=== PATIENT | female | born 1940 | race Caucasian/White ===

== ENCOUNTER 2021-09-28 10:39 | Inpatient (IN) ==
[2021-09-28 11:54] LABS: Basophils # (auto) 0.01 K/uL (0-0.2); Basophils % (auto) 0.3 %; Eosinophils # (auto) 0.01 K/uL (0-0.5); Eosinophils % (auto) 0.3 %; Hematocrit (blood only) 33.3 % (37-47); Hemoglobin 10.5 g/dL (12.0-16.0); Immature Granulocytes # (auto) 0.01 K/uL (0.00-0.02); Immature Granulocytes % (auto) 0.3 %; Lymphocytes # (auto) 0.36 K/uL (1.2-3.4); Lymphocytes % (auto) 10.1 %; Mean Corpuscular Hemoglobin 31.8 pg (25-34); Mean Corpuscular Hgb Conc 31.5 g/dL (32-36); Mean Corpuscular Volume 100.9 fL (80-100); Mean Platelet Volume 11.4 fL (7.4-10.4); Monocytes # (auto) 0.11 K/uL (0.11-0.59); Monocytes % (auto) 3.1 %; Neutrophils # (auto) 3.06 K/uL (1.4-6.5); Neutrophils % (auto) 85.9 %; Platelet Count 127 K/uL (130-400); RDW Coefficient of Variation 16.7 % (11.5-14.5); RDW Standard Deviation 62.2 fL (36.4-46.3); White Blood Count 3.56 K/uL (4.8-10.8)
[2021-09-28 12:20] LABS: Albumin Globulin Ratio 1.8 (0.9-2); Albumin Level 4.5 gm/dl (3.4-5.0); BUN Creatinine Ratio 4.3 (10-20); Bilirubin,Total 0.8 mg/dl (0.2-1.0); Calcium 10.2 mg/dl (8.5-10.1); Creatinine Clr Calc Pharmacy 7.5 ml/min; Est GFR (African American) 10.2 ml/min; Est GFR (Non-African American) 8.8 ml/min; Globulin 2.5 gm/dl (2.5-4.0); Phosphorus 2.6 mg/dl (2.5-4.9); Potassium 3.7 mmol/L (3.5-5.1)
--- NOTE | 2021-09-28 12:25 | XRay Report ---
XR chest 1V portable HISTORY: 80 years-old Female Chest Pain . Acute atypical chest pain COMPARISON: None TECHNIQUE: Portable AP view of the chest FINDINGS: The cardiac silhouette is enlarged. Pulmonary vascular congestion with interstitial coarsening. No pn eumothorax. Trace right with small to moderate left pleural effusions. Left greater than right bibasi lar consolidation. Atherosclerosis of the aorta. Degenerative changes of the shoulders and spine. Javier gical clips of the left upper extremity. IMPRESSION: 1. Cardiomegaly with pulmonary vascular congestion and interstitial coarsening suggestive of pulmonar y edema. 2. Left greater than right pleural effusions with bibasilar consolidation. Findings may represent ate lectasis versus pneumonia. ACT 112: Negative or not required by law. The above report was generated using voice recognition software. It may contain grammatical, syntax o r spelling errors. Electronically signed by: Dano Newell M.D. 09/28/2021 12:24 PM
[2021-09-28] MEDS ORDERED: guaiFENesin 600 MG TABCR PO STA (12:52)
[2021-09-28] MEDS ORDERED: ALBUT/IPRATROP 3MG/0.5MG NEB 3 ML VIAL NEB STA (12:52)
[2021-09-28] MEDS ORDERED: methylPREDNISolone 125 MG/2 ML VIAL IV STA (12:54)
[2021-09-28 13:03] LABS: Influenza A virus by PCR Negative (Neg); Influenza B virus by PCR Negative (Neg); RSV by PCR Negative (Neg); SARS CoV2 RNA(COVID-19) InHosp NEGATIVE (Negative)
--- NOTE | 2021-09-28 13:16 | Electrocardiogram Report ---
Test Reason : Blood Pressure : / mmHG Vent. Rate : 080 BPM Atrial Rate : 080 BPM P-R Int : 140 ms QRS Dur : 104 ms QT Int : 412 ms P-R-T Axes : 062 -56 076 degrees QTc Int : 475 ms Sinus rhythm with Premature supraventricular complexes Possible Left atrial enlargement Left anterior fascicular block Abnormal ECG No previous ECGs available Confirmed by River Williamson ([id number]) on 09/28/2021 1:16:11 PM Referred By: REFERRED SELF Confirmed By:Silvestre Williamson
[2021-09-28] MEDS ORDERED: cefTRIAXone SODIUM 2,000 MG/70 ML BAG IV STA (14:35)
[2021-09-28] MEDS ORDERED: AZITHROMYCIN 500 MG in DEXTROSE 5% 250 ML IV STA (14:40)
--- NOTE | 2021-09-28 14:43 | History & Physical Report ---
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 (6) Goodpasture's syndrome: (7) GERD (gastroesophageal reflux disease): Plan: Switch omeprazole for pantoprazole per hospital formulary (8) Hypertension: Plan: Continue lisinopril 40mg PO daily, terazosin 10mg PO daily, amlodipine 10mg PO daily, hydralazine 10mg PO BID (9) Hypothyroidism: Plan: TSH WNL 06/2021 Continue levothyroxine 112 mcg PO daily Plan: VTE Prophylaxis - heparin 5000 units SQ BID Diet - dialysis renal Disposition - admit to med/tele Admission and Anticipated Discharge Date Admission Date: September 28, 2021 History of Present Illness Chief Complaint: Shortness of breath, myalgias and back pain Primary Care Provider: DO Monet Myers Sanjeev is a 80 year old female with ESRD on dialysis who presents to the ER with shortness of breath, myalgias and back pain. The pain in her muscles were so severe today she had to cut her dialysis short. She reports her symptoms started over the weekend (last 3 days) with generalized feeling unwell with sinus pain, chills, back aches, headaches and leg shaking. She denies any cough, abdominal pain or diarrhea. She has not produced urine for a number of years. In the ER procalcitonin elevated and WBC decreased. CXR was concerning for left basal pneumonia and pulmonary edema. She was initiall prescribed ceftriaxone and azithromycin (ceftriaxone switched to Unasyn by myself) Allergies Allergy/AdvReac Type Severity Reaction Status Date / Time ciprofloxacin [From Cipro] Allergy Intermediate itchiness Verified 09/28/21 15:11 Home Medications Medication Instructions Recorded Confirmed Type albuterol sulfate 0.63 mg/3 mL 0.63 mg CONTINUOUS NEBULIZATION 05/13/21 09/28/21 History solution for nebulization QID PRN albuterol sulfate 90 mcg/actuation 2 puff INHALATION QID PRN 05/13/21 09/28/21 History aerosol inhaler docusate sodium 100 mg capsule 100 mg PO DAILY #30 cap 05/13/21 09/28/21 Rx (Colace) evening primrose oil 500 mg capsule 500 mg PO TID 05/13/21 09/28/21 History levothyroxine 112 mcg capsule 112 mcg PO DAILY 05/13/21 09/28/21 History lisinopril 40 mg tablet 40 mg PO DAILY 05/13/21 09/28/21 History omeprazole 40 mg capsule,delayed 40 mg PO DAILY 05/13/21 09/28/21 History release rosuvastatin 10 mg tablet 10 mg PO DAILY 05/13/21 09/28/21 History tiotropium bromide 2.5 2 puff INHALATION DAILY 05/13/21 09/28/21 History mcg/actuation mist for inhalation (Spiriva Respimat) vitamin B complex 1 tab PO DAILY #30 tab 05/13/21 09/28/21 Rx cholecalciferol (vitamin D3) 125 125 mcg PO DAILY 05/20/21 09/28/21 History mcg (5,000 unit) capsule amlodipine 10 mg tablet 10 mg PO DAILY 05/28/21 09/28/21 History sorbitol 70 % solution 60 ml PO DAILY PRN 05/28/21 09/28/21 History d-mannose 500 mg capsule 500 mg PO .qother cap 07/09/21 09/28/21 History fluticasone furoate 100 1 inh INHALATION DAILY 07/09/21 09/28/21 History mcg/actuation blister powder for inhalation (Arnuity Ellipta) hydralazine 10 mg tablet 10 mg PO BID 07/09/21 09/28/21 History sevelamer carbonate 800 mg tablet 800 mg PO DAILY tab 07/09/21 09/28/21 History terazosin 10 mg capsule 10 mg PO DAILY 09/28/21 09/28/21 History vitamin B complex-vitamin C-folic 1 tab PO DAILY 09/28/21 09/28/21 History acid 0.8 mg tablet (Sarika-Ashley) Past Med/Surg History Medical History ANCA-associated vasculitis Asthma Chronic constipation ESRD (end stage renal disease) on dialysis GERD (gastroesophageal reflux disease) Goodpasture's syndrome (2018) History of small bowel obstruction Hyperlipidemia Hypertension Hypothyroidism Melanocytic nevi, unspecified Urinary incontinence Surgical History H/O removal of cyst scalp H/O thyroidectomy age 14 History of partial colectomy (~2019) secondary to SBO Family History Father , Leukemia Leukemia Brother Parkinson disease Brother TIA (transient ischemic attack) Mother , age 93 No problems noted. Social History Smoking Status: Never smoker Second Hand Exposure: No; Do You Dip or Chew Tobacco: No; Tobacco Cessation Education Requested by Patient: No Hx Alcohol Use: No Hx Substance Use: No Preferred Language: Marshallese Communication Ability: Effective Visual Impairment: No Limitations Hearing Ability: Normal Peanut Shaker Required: No Beliefs That Will Affect Care: None marital status: Current Living Situation: Spouse Current Living Situation Comment: Supportive Grandaughter - involved. Lives in a 2 story home Feels Safe at Home: Yes Physical Activity Frequency: Daily Seatbelt Use: always Sunscreen Use: Yes Assistive Devices: None Review of Systems Review of Systems: All systems reviewed & are unremarkable except as noted in HPI & below Physical Exam Constitutional: well developed and + frail appearing; + not well nourished and no acute distress Eyes: PERRL, conjunctivae normal, anicteric sclerae Neck: trachea midline, no thyromegaly Respiratory: + uses accessory muscles and able to speak in complete sentences Auscultation: + diminished lung sounds (bibasal) and + crackles (left mid zone); no wheezes Cardiovascular: Rate/Rhythm: regular rate and regular rhythm Heart Sounds: + murmur (thorughout) Extremities: normal capillary refill and + pedal edema; no calf tenderness Gastrointestinal (Abdomen): Inspection/Auscultation: normal bowel sounds Percussion/Palpation: abdomen soft; abdomen nontender, no guarding and abdomen not rigid Musculoskeletal: no cyanosis or clubbing, extremities motor strength 5/5 Skin: no rashes, warm and dry Psychiatric: A+Ox3, euthymic affect Results & Data Results & Data ([facility]) Vital Signs (Past 12 Hours) Vital Signs Temp Pulse Pulse Resp BP BP Pulse Ox 09/28/21 14:30 88 21 181/78 H 90 09/28/21 14:20 87 24 90 09/28/21 14:10 90 27 H 88 L 09/28/21 14:00 87 24 191/77 H 90 09/28/21 13:50 92 H 26 H 89 L 09/28/21 13:40 87 13 100 09/28/21 13:30 88 24 164/82 H 83 L 09/28/21 13:20 83 25 H 96 09/28/21 13:10 81 83 27 H 183/83 H 96 09/28/21 13:00 85 24 183/83 H 97 09/28/21 12:50 80 19 96 09/28/21 12:40 81 21 96 09/28/21 12:30 82 28 H 188/77 H 99 09/28/21 12:20 79 23 99 09/28/21 12:10 83 23 98 09/28/21 12:00 80 21 181/77 H 100 09/28/21 11:52 84 20 89 L 09/28/21 11:50 79 25 H 100 09/28/21 11:40 80 24 100 09/28/21 11:30 78 25 H 192/75 H 99 09/28/21 11:26 78 20 172/66 H 99 09/28/21 11:24 82 30 H 100 09/28/21 10:42 36.7 C 80 18 177/66 H 89 L Laboratory Results Abnormal lab results 09/28/21 09/28/21 09/28/21 Range/Units 11:18 11:18 11:18 WBC 3.56 L (4.8-10.8) K/uL RBC 3.30 L (4.2-5.4) M/uL Hgb 10.5 L (12.0-16.0) g/dL Hct 33.3 L (37-47) % MCV 100.9 H (80-100) fL MCHC 31.5 L (32-36) g/dL RDW Std Deviation 62.2 H (36.4-46.3) fL RDW Coeff of Caroline 16.7 H (11.5-14.5) % Plt Count 127 L (130-400) K/uL MPV 11.4 H (7.4-10.4) fL Lymph # (Auto) 0.36 L (1.2-3.4) K/uL Creatinine 4.47 H (0.6-1.2) mg/dl BUN/Creatinine Ratio 4.3 L (10-20) Calcium 10.2 H (8.5-10.1) mg/dl AST 41 H (13-39) U/L Troponin I High Sens 44.2 H (0-14) pg/ml Procalcitonin (0-0.5) ng/ml Nasal Screen MRSA (PCR) (Negative) 09/28/21 09/28/21 09/28/21 Range/Units 13:17 15:25 19:55 WBC (4.8-10.8) K/uL RBC (4.2-5.4) M/uL Hgb (12.0-16.0) g/dL Hct (37-47) % MCV (80-100) fL MCHC (32-36) g/dL RDW Std Deviation (36.4-46.3) fL RDW Coeff of Caroline (11.5-14.5) % Plt Count (130-400) K/uL MPV (7.4-10.4) fL Lymph # (Auto) (1.2-3.4) K/uL Creatinine (0.6-1.2) mg/dl BUN/Creatinine Ratio (10-20) Calcium (8.5-10.1) mg/dl AST (13-39) U/L Troponin I High Sens 42.5 H (0-14) pg/ml Procalcitonin 1.27 H (0-0.5) ng/ml Nasal Screen MRSA (PCR) Positive A (Negative) Medications Administered ER Medications Given: Duoneb 3ml NEB Guaifenesin 600mg PO Methylprednisolone 60mg IV Azithromycin 500mg IV ECG Rhythm: normal sinus Findings: + other (SVCs) and + LAFB Comparison ECG Date: no prior available Code Status & VTE Plan Code Status Full VTE Prophylaxis Plan VTE Prophylaxis will be ordered: Yes PG Care Time/CCT Total # of Minutes Spent Total Time Spent with Patient: Total time spent is greater than 50% in coordination of care (as documented) at patient's floor/unit and/or counseling patient: Coding Level of Care Code 80658 Initial Inpt Care Lvl 3 Diagnoses Asthma exacerbation J45.901 ESRD (end stage renal disease) on dialysis N18.6; Z99.2 ANCA-associated vasculitis I77.6 Goodpasture's syndrome M31.0 GERD (gastroesophageal reflux disease) K21.9 Hypertension I10 Hypothyroidism E03.9 Acute respiratory failure with hypoxia J96.01 Pneumonia J18.9
[2021-09-28] MEDS ORDERED: AMPICILLIN/SULBACTAM SOD 3,000 MG in 0.9 % SODIUM CHLORIDE 100 ML IV STA (14:54)
[2021-09-28] MEDS ORDERED: ONDANSETRON INJ 2 MG/ML 2 ML VIAL ONE (15:25)
[2021-09-28] MEDS: ACETAMINOPHEN 325 MG TAB PO PRN (19:33)
[2021-09-28] MEDS: TERAZOSIN HCL 5 MG CAP PO SCH (20:02)
[2021-09-28] MEDS: AMPICILLIN/SULBACTAM SOD 3,000 MG in 0.9 % SODIUM CHLORIDE 100 ML IV SCH (20:02)
[2021-09-28] MEDS: hydrALAZINE 10 MG TAB PO SCH (20:02)
[2021-09-28] MEDS: ALBUT/IPRATROP 3MG/0.5MG NEB 3 ML VIAL NEB SCH (20:20)
--- NOTE | 2021-09-28 21:32 | Emergency Department Note ---
Impression & Plan Pneumonia, Asthma exacerbation, Hypoxia ED Provider Note NAME: FRED VICENTE AGE: 80 SEX: F ARRIVES VIA: Walk-In INFORMANT: Patient ED PROVIDER(S): Momo Frankel MD CHIEF COMPLAINT: Body aches, chest tightness/asthma PLAN: Disposition: Admit MEDICAL DECISION MAKING: The patient is a pleasant 80-year-old woman with a past medical history of end- stage renal disease on hemodialysis, asthma, hypertension, GERD who presents to the emergency department via private vehicle accompanied by her from her dialysis center for evaluation of body aches and chest tightness which she feels is her asthma that has evolved since Tuesday/weekly and and felt worsening when she was on dialysis. She reports because she felt worse she only completed half of her session today. She reports she otherwise consistently attends her dialysis sessions and has not missed any. She reports she was referred to the emergency department by her manager user interface as it was suggested she could have a urinary tract infection. The patient reports that she has not urinated in at least 5 years. Patient denies having fevers. She denies nausea, vomiting, diarrhea. She reports she is vaccinated for COVID-19 including her booster as well as being vaccinated for influenza. On arrival the patient is chronically ill-appearing but no acute distress, afebrile with stable vital signs. Her O2 saturation on room air on arrival was noted to be in the upper 80s and so was placed on 2 L nasal cannula with improvement to the low-mid 90s. She appears euvolemic. She has scant wheezes of bilateral lung murillo and no significant increased work of breathing. EKG without overt acute ischemia. Chest x-ray demonstrates vascular congestion with interstitial thickening suggestive of pulmonary edema as well as note of the left greater than right pleural effusion with bibasilar consolidations. WBC 3.5K, nonspecific without prior values comparison. H/H 10.5/33 and platel ets 127K without recent values for comparison. Creatinine is 4.4 in the setting of his known end-stage renal disease. Electrolytes without significant abnormality. AST 41, nonspecific without prior for comparison. Initial high- sensitivity troponin 44, nonspecific. Procalcitonin was elevated at 1.2 and is consistent with suspicion for pneumonia on chest x-ray given the patient's report of symptoms. Covid-19 PCR negative. Influenza and RSV PCR negative. Treatment was initiated for CAP with ceftriaxone and azithromycin. Patient was additionally treated with Solu-Medrol and DuoNeb for component of bronchospasm in the setting of patient's asthma. Patient agrees with plan for admission giv en her symptoms and hypoxia. Case was d/w Dr. Norton [facility] hospitalist who will evaluate the patient for admission. Triage Nursing notes reviewed and agree them. Prior medical records reviewed Vital Signs: reviewed and remarkable for hypoxia. Differential diagnosis: Infection, dehydration, metabolic abnormality, hypo/hyperglycemia, electrolyte disturbance, anemia, hypoxia, cardiac sources, intracerebral event, toxicologic, neurologic, as well as other pathologies. ER treatment provided: See below. Diagnostics interpreted by me: ECG: Sinus rhythm with P SVC's, 80 bpm, left anterior fascicular block, no overt ST elevation or depression, QTC 475, QRS 104. Cardiac Monitoring: An order for continuous cardiac monitoring was placed and demonstrated Sinus rhythm with PSVC's, 80 bpm,. Laboratory studies: See below Imaging studies: See below Consultation(s): Case was d/w Dr. Norton [facility] hospitalist who will evaluate the patient for admi ssion. HPI: The patient is a pleasant 80-year-old woman with a past medical history of end-stage renal disease on hemodialysis, asthma, hypertension, GERD who presents to the emergency department via private vehicle accompanied by her from her dialysis center for evaluation of body aches and chest tightness which she feels is her asthma that has evolved since Tuesday/weekly and and felt worsening when she was on dialysis. She reports because she felt worse she only completed half of her session today. She reports she otherwise consistently attends her dialysis sessions and has not missed any. She reports she was referred to the emergency department by her manager user interface as it was suggested she could have a urinary tract infection. The patient reports that she has not urinated in at least 5 years. Patient denies having fevers. She denies nausea, vomiting, diarrhea. She reports she is vaccinated for COVID-19 including her booster as well as being vaccinated for influenza. ROS: See above HPI for pertinent positives & negatives. A total of 10 systems reviewed and were otherwise negative. VITALS:See Below PHYSICAL EXAMINATION: GENERAL: Awake, alert, chronically ill-appearing, in no distress HENT: Normocephalic, atraumatic. Oropharynx with dry mucous membranes and othe rwise unremarkable. EYES: Normal conjunctiva. Sclera non-icteric. NECK: Supple. No nuchal rigidity. FROM. No JVD. RESPIRATORY: Scant wheezes of bilateral lung murillo and no significant increased work of breathing. CARDIAC: Regular rate, normal rhythm. Extremities warm and well perfused. Pulses equal. ABDOMEN: Soft, non-distended. No tenderness to palpation. No rebound or guarding. No masses. RECTAL: Deferred. MUSCULOSKELETAL: Chest examination reveals no tenderness. The back is symmetrical on inspection without obvious abnormality. There is no CVA tenderness to palpation. No joint edema. LOWER EXTREMITIES: Calves are equal size bilaterally and non-tender. No edema. No discoloration. NEURO: Normal sensorium. No sensory or motor deficits noted. SKIN: No rash or jaundice noted. ED COURSE: Critical Care: I have personally spent greater than 35 minutes of critical care time in the direct management of this patient. This includes bedside care, interpretation of diagnostic studies, and testing, discussion with consultants, patient, and family members, and other required patient management activities. This 35 minutes is in excess of all separately billable procedures. Momo Frankel MD Past Med/Surg History Medical History ANCA-associated vasculitis Asthma Chronic constipation ESRD (end stage renal disease) on dialysis GERD (gastroesophageal reflux disease) Goodpasture's syndrome (2018) History of small bowel obstruction Hyperlipidemia Hypertension Hypothyroidism Melanocytic nevi, unspecified Urinary incontinence Surgical History H/O removal of cyst scalp H/O thyroidectomy age 14 History of partial colectomy (~2019) secondary to SBO Family History Father , Leukemia Leukemia Brother Parkinson disease Brother TIA (transient ischemic attack) Mother , age 93 No problems noted. Social History Smoking Status: Never smoker Second Hand Exposure: No; Do You Dip or Chew Tobacco: No; Tobacco Cessation Education Requested by Patient: No Hx Alcohol Use: No Hx Substance Use: No Preferred Language: Romansh Communication Ability: Effective Visual Impairment: No Limitations Hearing Ability: Normal Frame Assembler Required: No Beliefs That Will Affect Care: None marital status: Current Living Situation: Spouse Current Living Situation Comment: Supportive Grandaughter - involved. Lives in a 2 story home Feels Safe at Home: Yes Physical Activity Frequency: Daily Seatbelt Use: always Sunscreen Use: Yes Assistive Devices: None Allergies Allergies Allergy/AdvReac Type Severity Reaction Status Date / Time ciprofloxacin [From Cipro] Allergy Intermediate itchiness Verified 09/28/21 15:11 Home Meds Home Medications Medication Instructions Recorded Confirmed albuterol sulfate 0.63 mg/3 mL 0.63 mg CONTINUOUS NEBULIZATION 05/13/21 09/28/21 solution for nebulization QID PRN albuterol sulfate 90 mcg/actuation 2 puff INHALATION QID PRN 05/13/21 09/28/21 aerosol inhaler evening primrose oil 500 mg capsule 500 mg PO TID 05/13/21 09/28/21 levothyroxine 112 mcg capsule 112 mcg PO DAILY 05/13/21 09/28/21 lisinopril 40 mg tablet 40 mg PO DAILY 05/13/21 09/28/21 omeprazole 40 mg capsule,delayed 40 mg PO DAILY 05/13/21 09/28/21 release rosuvastatin 10 mg tablet 10 mg PO DAILY 05/13/21 09/28/21 tiotropium bromide 2.5 2 puff INHALATION DAILY 05/13/21 09/28/21 mcg/actuation mist for inhalation (Spiriva Respimat) cholecalciferol (vitamin D3) 125 125 mcg PO DAILY 05/20/21 09/28/21 mcg (5,000 unit) capsule amlodipine 10 mg tablet 10 mg PO DAILY 05/28/21 09/28/21 sorbitol 70 % solution 60 ml PO DAILY PRN 05/28/21 09/28/21 d-mannose 500 mg capsule 500 mg PO .qother cap 07/09/21 09/28/21 fluticasone furoate 100 1 inh INHALATION DAILY 07/09/21 09/28/21 mcg/actuation blister powder for inhalation (Arnuity Ellipta) hydralazine 10 mg tablet 10 mg PO BID 07/09/21 09/28/21 sevelamer carbonate 800 mg tablet 800 mg PO DAILY tab 07/09/21 09/28/21 terazosin 10 mg capsule 10 mg PO DAILY 09/28/21 09/28/21 vitamin B complex-vitamin C-folic 1 tab PO DAILY 09/28/21 09/28/21 acid 0.8 mg tablet (Sarika-Ashley) Previous Rx's Medication Instructions Recorded docusate sodium 100 mg capsule 100 mg PO DAILY #30 cap 05/13/21 (Colace) vitamin B complex 1 tab PO DAILY #30 tab 05/13/21 Results & Data (ED) Vital Signs Vital Signs - 24 hr 09/28/21 10:42 09/28/21 11:24 09/28/21 11:26 Temperature 36.7 C Temperature Source Temporal Artery Scan Pulse Rate 80 82 Pulse Rate [Apical] 78 Pulse Rate from SpO2 Sensor 81 Pulse Rhythm Respiratory Rate 18 30 H 20 Blood Pressure 177/66 H Blood Pressure [Right Arm] 172/66 H Blood Pressure Mean 103 Blood Pressure Mean [Right Arm] 101 Blood Pressure Position [Right Arm] Lying Pulse Oximetry 89 L 100 99 Oxygen Delivery Method Room Air Nasal Cannula Oxygen Flow Rate 2 Sepsis Recent Fever Within 48 Hours No Sepsis New/Unexplained Change in Mental Status No Sepsis Action Taken by Nursing No Action Required 09/28/21 11:30 09/28/21 11:40 09/28/21 11:50 Temperature Temperature Source Pulse Rate 78 80 79 Pulse Rate [Apical] Pulse Rate from SpO2 Sensor 79 80 79 Pulse Rhythm Respiratory Rate 25 H 24 25 H Blood Pressure 192/75 H Blood Pressure [Right Arm] Blood Pressure Mean 114 Blood Pressure Mean [Right Arm] Blood Pressure Position [Right Arm] Pulse Oximetry 99 100 100 Oxygen Delivery Method Nasal Cannula Nasal Cannula Oxygen Flow Rate 2 2 Sepsis Recent Fever Within 48 Hours Sepsis New/Unexplained Change in Mental Status Sepsis Action Taken by Nursing 09/28/21 11:52 09/28/21 12:00 09/28/21 12:10 Temperature Temperature Source Pulse Rate 84 80 83 Pulse Rate [Apical] Pulse Rate from SpO2 Sensor 79 83 Pulse Rhythm Regular Respiratory Rate 20 21 23 Blood Pressure 181/77 H Blood Pressure [Right Arm] Blood Pressure Mean 111 Blood Pressure Mean [Right Arm] Blood Pressure Position [Right Arm] Pulse Oximetry 89 L 100 98 Oxygen Delivery Method Room Air Oxygen Flow Rate Sepsis Recent Fever Within 48 Hours Sepsis New/Unexplained Change in Mental Status Sepsis Action Taken by Nursing 09/28/21 12:20 09/28/21 12:30 09/28/21 12:40 Temperature Temperature Source Pulse Rate 79 82 81 Pulse Rate [Apical] Pulse Rate from SpO2 Sensor 79 81 82 Pulse Rhythm Respiratory Rate 23 28 H 21 Blood Pressure 188/77 H Blood Pressure [Right Arm] Blood Pressure Mean 114 Blood Pressure Mean [Right Arm] Blood Pressure Position [Right Arm] Pulse Oximetry 99 99 96 Oxygen Delivery Method Oxygen Flow Rate Sepsis Recent Fever Within 48 Hours Sepsis New/Unexplained Change in Mental Status Sepsis Action Taken by Nursing 09/28/21 12:50 09/28/21 13:00 09/28/21 13:10 Temperature Temperature Source Pulse Rate 80 85 81 Pulse Rate [Apical] 83 Pulse Rate from SpO2 Sensor 80 85 81 Pulse Rhythm Respiratory Rate 19 24 27 H Blood Pressure 183/83 H Blood Pressure [Right Arm] 183/83 H Blood Pressure Mean 116 Blood Pressure Mean [Right Arm] 116 Blood Pressure Position [Right Arm] Pulse Oximetry 96 97 96 Oxygen Delivery Method Room Air Oxygen Flow Rate Sepsis Recent Fever Within 48 Hours Sepsis New/Unexplained Change in Mental Status Sepsis Action Taken by Nursing 09/28/21 13:20 09/28/21 13:30 09/28/21 13:40 Temperature Temperature Source Pulse Rate 83 88 87 Pulse Rate [Apical] Pulse Rate from SpO2 Sensor 83 97 H 87 Pulse Rhythm Respiratory Rate 25 H 24 13 Blood Pressure 164/82 H Blood Pressure [Right Arm] Blood Pressure Mean 109 Blood Pressure Mean [Right Arm] Blood Pressure Position [Right Arm] Pulse Oximetry 96 83 L 100 Oxygen Delivery Method Oxygen Flow Rate Sepsis Recent Fever Within 48 Hours Sepsis New/Unexplained Change in Mental Status Sepsis Action Taken by Nursing 09/28/21 13:50 09/28/21 14:00 09/28/21 14:10 Temperature Temperature Source Pulse Rate 92 H 87 90 Pulse Rate [Apical] Pulse Rate from SpO2 Sensor 91 H 87 90 Pulse Rhythm Respiratory Rate 26 H 24 27 H Blood Pressure 191/77 H Blood Pressure [Right Arm] Blood Pressure Mean 115 Blood Pressure Mean [Right Arm] Blood Pressure Position [Right Arm] Pulse Oximetry 89 L 90 88 L Oxygen Delivery Method Nasal Cannula Oxygen Flow Rate 2 Sepsis Recent Fever Within 48 Hours Sepsis New/Unexplained Change in Mental Status Sepsis Action Taken by Nursing 09/28/21 14:20 09/28/21 14:30 Temperature Temperature Source Pulse Rate 87 88 Pulse Rate [Apical] Pulse Rate from SpO2 Sensor 87 87 Pulse Rhythm Respiratory Rate 24 21 Blood Pressure 181/78 H Blood Pressure [Right Arm] Blood Pressure Mean 112 Blood Pressure Mean [Right Arm] Blood Pressure Position [Right Arm] Pulse Oximetry 90 90 Oxygen Delivery Method Nasal Cannula Oxygen Flow Rate 2 Sepsis Recent Fever Within 48 Hours Sepsis New/Unexplained Change in Mental Status Sepsis Action Taken by Nursing Laboratory Data Attestation: I reviewed the patient's lab results. Result diagrams: 09/28/21 11:18 09/28/21 11:18 Lab Results 09/28/21 09/28/21 09/28/21 Range/Units 11:18 11:18 11:18 WBC 3.56 L (4.8-10.8) K/uL RBC 3.30 L (4.2-5.4) M/uL Hgb 10.5 L (12.0-16.0) g/dL Hct 33.3 L (37-47) % MCV 100.9 H (80-100) fL MCH 31.8 (25-34) pg MCHC 31.5 L (32-36) g/dL RDW Std Deviation 62.2 H (36.4-46.3) fL RDW Coeff of Caroline 16.7 H (11.5-14.5) % Plt Count 127 L (130-400) K/uL MPV 11.4 H (7.4-10.4) fL Immature Gran % (Auto) 0.3 % Neut % (Auto) 85.9 % Lymph % (Auto) 10.1 % Sampson % (Auto) 3.1 % Eos % (Auto) 0.3 % Baso % (Auto) 0.3 % Neut # (Auto) 3.06 (1.4-6.5) K/uL Lymph # (Auto) 0.36 L (1.2-3.4) K/uL Sampson # (Auto) 0.11 (0.11-0.59) K/uL Eos # (Auto) 0.01 (0-0.5) K/uL Baso # (Auto) 0.01 (0-0.2) K/uL Immature Gran # (Auto) 0.01 (0.00-0.02) K/uL Sodium 140 (136-145) mmol/L Potassium 3.7 (3.5-5.1) mmol/L Chloride 101 (98-107) mmol/L Carbon Dioxide 28 (21-32) mmol/L Anion Gap 11 (3-11) BUN 19 (6-23) mg/dl Creatinine 4.47 H (0.6-1.2) mg/dl Est Cr Clr Drug Dosing 7.5 ml/min Est GFR ( Amer) 10.2 ml/min Est GFR (Non-Af Amer) 8.8 ml/min BUN/Creatinine Ratio 4.3 L (10-20) Glucose 86 (70-99(Fasting)) mg/dl Lactate (0.4-2.0) mmol/L Calcium 10.2 H (8.5-10.1) mg/dl Phosphorus 2.6 (2.5-4.9) mg/dl Magnesium 2.0 (1.7-2.4) mg/dl Total Bilirubin 0.8 (0.2-1.0) mg/dl AST 41 H (13-39) U/L ALT 29 (7-52) U/L Alkaline Phosphatase 71 (34-104) U/L Total Creatine Kinase 50 (26-192) U/L Troponin I High Sens 44.2 H (0-14) pg/ml Total Protein 7.0 (6.0-8.3) gm/dl Albumin 4.5 (3.4-5.0) gm/dl Globulin 2.5 (2.5-4.0) gm/dl Albumin/Globulin Ratio 1.8 (0.9-2) Procalcitonin (0-0.5) ng/ml SARS-CoV-2 (PCR) (Negative) Influenza Type A (PCR) (Neg) Influenza Type B (PCR) (Neg) RSV (RT-PCR) (Neg) 09/28/21 09/28/21 09/28/21 Range/Units 12:00 13:17 13:17 WBC (4.8-10.8) K/uL RBC (4.2-5.4) M/uL Hgb (12.0-16.0) g/dL Hct (37-47) % MCV (80-100) fL MCH (25-34) pg MCHC (32-36) g/dL RDW Std Deviation (36.4-46.3) fL RDW Coeff of Caroline (11.5-14.5) % Plt Count (130-400) K/uL MPV (7.4-10.4) fL Immature Gran % (Auto) % Neut % (Auto) % Lymph % (Auto) % Sampson % (Auto) % Eos % (Auto) % Baso % (Auto) % Neut # (Auto) (1.4-6.5) K/uL Lymph # (Auto) (1.2-3.4) K/uL Sampson # (Auto) (0.11-0.59) K/uL Eos # (Auto) (0-0.5) K/uL Baso # (Auto) (0-0.2) K/uL Immature Gran # (Auto) (0.00-0.02) K/uL Sodium (136-145) mmol/L Potassium (3.5-5.1) mmol/L Chloride (98-107) mmol/L Carbon Dioxide (21-32) mmol/L Anion Gap (3-11) BUN (6-23) mg/dl Creatinine (0.6-1.2) mg/dl Est Cr Clr Drug Dosing ml/min Est GFR ( Amer) ml/min Est GFR (Non-Af Amer) ml/min BUN/Creatinine Ratio (10-20) Glucose (70-99(Fasting)) mg/dl Lactate 0.6 (0.4-2.0) mmol/L Calcium (8.5-10.1) mg/dl Phosphorus (2.5-4.9) mg/dl Magnesium (1.7-2.4) mg/dl Total Bilirubin (0.2-1.0) mg/dl AST (13-39) U/L ALT (7-52) U/L Alkaline Phosphatase (34-104) U/L Total Creatine Kinase (26-192) U/L Troponin I High Sens (0-14) pg/ml Total Protein (6.0-8.3) gm/dl Albumin (3.4-5.0) gm/dl Globulin (2.5-4.0) gm/dl Albumin/Globulin Ratio (0.9-2) Procalcitonin 1.27 H (0-0.5) ng/ml SARS-CoV-2 (PCR) NEGATIVE (Negative) Influenza Type A (PCR) Negative (Neg) Influenza Type B (PCR) Negative (Neg) RSV (RT-PCR) Negative (Neg) Administered Medications Acetaminophen (Acetaminophen 325 Mg Tab) 650 mg PO Q4H PRN PRN Reason: Pain or Fever Stop: 10/28/21 17:22 Last Admin: 09/28/21 19:33 Dose: 650 mg Documented by: [id number] Albuterol (Albut/Ipratrop 3mg/0.5mg Neb 3 Ml Vial) 3 ml NEB QIDR [facility]; Protocol Stop: 10/28/21 18:59 Last Admin: 09/28/21 20:20 Dose: 3 ml Documented by: [id number] Hydralazine HCl (Hydralazine 10 Mg Tab) 10 mg PO BID [facility] Stop: 10/28/21 20:59 Last Admin: 09/28/21 20:02 Dose: 10 mg Documented by: [id number] Ampicillin Sodium/Sulbactam Sodium 3,000 mg/ Sodium Chloride 108 mls @ 200 mls/hr IV Q12H [facility]; Protocol Stop: 10/05/21 19:59 Last Admin: 09/28/21 20:02 Dose: Not Given Documented by: [id number] Terazosin HCl (Terazosin Hcl 5 Mg Cap) 10 mg PO [facility] Stop: 10/28/21 20:59 Last Admin: 09/28/21 20:02 Dose: 10 mg Documented by: [id number] Discontinued Medications Albuterol (Albut/Ipratrop 3mg/0.5mg Neb 3 Ml Vial) 3 ml NEB NOW STA; Protocol Stop: 09/28/21 12:53 Last Admin: 09/28/21 13:27 Dose: 3 ml Documented by: [id number] Guaifenesin (Guaifenesin 600 Mg Tabcr) 600 mg PO NOW STA Stop: 09/28/21 12:53 Last Admin: 09/28/21 13:27 Dose: 600 mg Documented by: [id number] Ceftriaxone Sodium (Rocephin) 2,000 mg in 70 mls @ 140 mls/hr IV NOW STA Stop: 09/28/21 15:04 Last Admin: 09/28/21 15:13 Dose: Not Given Documented by: [id number] Azithromycin 500 mg/ Dextrose 255 mls @ 127.5 mls/hr IV NOW STA Stop: 09/28/21 16:39 Last Infusion: 09/28/21 19:05 Dose: 0 mls/hr Documented by: [id number] Admin: 09/28/21 15:14 Dose: 127.5 mls/hr Documented by: [id number] Ampicillin Sodium/Sulbactam Sodium 3,000 mg/ Sodium Chloride 108 mls @ 200 mls/hr IV NOW STA; Protocol Stop: 09/28/21 15:26 Last Infusion: 09/28/21 20:02 Dose: 0 mls/hr Documented by: [id number] Admin: 09/28/21 19:29 Dose: 200 mls/hr Documented by: [id number] Methylprednisolone (Methylprednisolone 125 Mg/2 Ml Vial) 60 mg IV NOW STA Stop: 09/28/21 12:55 Last Admin: 09/28/21 13:28 Dose: 60 mg Documented by: [id number] Ondansetron HCl (Ondansetron Inj 2 Mg/Ml 2 Ml Vial) Confirm Administered Dose 4 mg .ROUTE .STK-MED ONE Stop: 09/28/21 15:26 Last Admin: 09/28/21 15:37 Dose: 4 mg Documented by: [id number] Imaging Data Radiologist's Impression: Chest X-Ray 09/28/21 11:32 XR chest 1V portable HISTORY: 80 years-old Female Chest Pain . Acute atypical chest pain COMPARISON: None TECHNIQUE: Portable AP view of the chest FINDINGS: The cardiac silhouette is enlarged. Pulmonary vascular congestion with interstitial coarsening. No pneumothorax. Trace right with small to moderate left pleural effusions. Left greater than right bibasilar consolidation. Atherosclerosis of the aorta. Degenerative changes of the shoulders and spine. Surgical clips of the left upper extremity. IMPRESSION: 1. Cardiomegaly with pulmonary vascular congestion and interstitial coarsening suggestive of pulmonary edema. 2. Left greater than right pleural effusions with bibasilar consolidation. Findings may represent atelectasis versus pneumonia. ACT 112: Negative or not required by law. The above report was generated using voice recognition software. It may contain grammatical, syntax or spelling errors. Electronically signed by: Dano Newell M.D. 09/28/2021 12:24 PM Discharge Plan Visit Data Chief Complaint: Illness Stated Complaint: ACHING, HEADACHE, SHIVERING, NAUSEA ED Provider: Momo Frankel Discharge Problem: Pneumonia, Asthma exacerbation, Hypoxia Patient Disposition: Admitted As Inpatient Discharge Instructions Interventions: ED Discharge Assessment Last Done: 09/28/21 16:14 Discharge Problem: Pneumonia Qualifiers: Pneumonia type: due to unspecified organism Laterality: bilateral Lung location: lower lobe of lung Qualified Code(s): J18.9 - Pneumonia, unspecified organism Asthma exacerbation Qualifiers: Asthma severity: unspecified severity Asthma persistence: unspecified Qualified Code(s): J45.901 - Unspecified asthma with (acute) exacerbation
[2021-09-29] MEDS: LEVOTHYROXINE SODIUM 112 MCG TABLET PO SCH (05:43)
[2021-09-29] MEDS: ALBUT/IPRATROP 3MG/0.5MG NEB 3 ML VIAL NEB SCH ×2 (07:33→11:15)
[2021-09-29] MEDS: amLODIPine BESYLATE 5 MG TAB PO SCH (07:44)
[2021-09-29] MEDS: SEVELAMER HCL 800 MG TABLET PO SCH (07:44)
[2021-09-29] MEDS: AZITHROMYCIN 250 MG TAB PO SCH (07:44)
[2021-09-29] MEDS: AMPICILLIN/SULBACTAM SOD 3,000 MG in 0.9 % SODIUM CHLORIDE 100 ML IV SCH (07:44)
[2021-09-29] MEDS: FLUTICASONE FUROATE 100MCG 14 PUFFS/INHALER INH SCH (07:45)
[2021-09-29] MEDS: DOCUSATE SODIUM 100 MG CAP PO SCH (07:45)
[2021-09-29] MEDS: CHOLECALCIFEROL 5,000 UNITS 125 MCG TAB PO SCH (07:45)
[2021-09-29] MEDS: lisinopril 40 MG TAB PO SCH (07:45)
[2021-09-29] MEDS: hydrALAZINE 10 MG TAB PO SCH ×2 (07:45→20:22)
[2021-09-29] MEDS: UMECLIDINIUM BROMIDE 62.5MCG/BLISTER 7 PUFFS/INHALER INH SCH (07:46)
[2021-09-29] MEDS: PANTOprazole 40 MG TAB PO SCH (07:46)
[2021-09-29] MEDS: VITAMIN B COMPLEX TAB PO SCH (07:46)
[2021-09-29] MEDS: NEPHROCAPS PO SCH (07:46)
[2021-09-29] MEDS: predniSONE 20 MG TAB PO SCH (07:46)
[2021-09-29] MEDS: ROSUVASTATIN CALCIUM 10 MG TAB PO SCH (07:46)
[2021-09-29 07:54] LABS: Basophils # (auto) 0.01 K/uL (0-0.2); Basophils % (auto) 0.3 %; Hematocrit (blood only) 28.9 % (37-47); Hemoglobin 8.8 g/dL (12.0-16.0); Immature Granulocytes # (auto) 0.01 K/uL (0.00-0.02); Immature Granulocytes % (auto) 0.3 %; Lymphocytes # (auto) 0.47 K/uL (1.2-3.4); Lymphocytes % (auto) 13.8 %; Mean Corpuscular Hemoglobin 31.2 pg (25-34); Mean Corpuscular Hgb Conc 30.4 g/dL (32-36); Mean Corpuscular Volume 102.5 fL (80-100); Mean Platelet Volume 11.4 fL (7.4-10.4); Monocytes # (auto) 0.32 K/uL (0.11-0.59); Monocytes % (auto) 9.4 %; Neutrophils % (auto) 76.2 %; Platelet Count 106 K/uL (130-400); RDW Coefficient of Variation 16.9 % (11.5-14.5); RDW Standard Deviation 63.9 fL (36.4-46.3); Red Blood Count 2.82 M/uL (4.2-5.4); White Blood Count 3.41 K/uL (4.8-10.8)
[2021-09-29 08:25] LABS: BUN Creatinine Ratio 5.4 (10-20); Calcium 8.7 mg/dl (8.5-10.1); Creatinine Clr Calc Pharmacy 4.7 ml/min; Est GFR (African American) 5.9 ml/min; Est GFR (Non-African American) 5.1 ml/min
[2021-09-29 08:30] LABS: Macrocytosis Present; Ovalocytes 1+
--- NOTE | 2021-09-29 09:50 | CT Scan Report ---
CT OF THE CHEST WITHOUT IV CONTRAST CLINICAL HISTORY: chf v pneumonia. Shortness of breath. COMPARISON STUDY: Chest radiograph September 28, 2021. CT DOSE: 186.72 mGy.cm TECHNIQUE: Axial images of the chest were obtained without IV contrast. Images were reviewed in the axial, sagittal, and coronal planes. IV contrast was not administered for this examination. Automat ed exposure control was utilized for the study. A dose lowering technique was utilized adhering to t he principles of ALARA. FINDINGS: No enlarged axillary, mediastinal or hilar lymph nodes are present. Moderate cardiomegaly is noted. There is decreased attenuation of the cardiac blood pool. There is a small pericardial effu santana. There are small bilateral pleural effusions. No pneumothorax is present. Left lower lobe opacit ies with volume loss represent atelectasis. There is also subpleural right lower lobe opacity consist ent with atelectasis. Note is made of right middle lobe volume loss with bronchiectasis. Note is made of a 3 x 1.9 cm low-attenuation right middle lobe opacity. There is no definite consolidation to sug gest pneumonia. No acute fracture or suspicious lesion within the visualized thorax is present. Marke d left renal atrophy is partially imaged on this exam. Upper abdomen is otherwise unremarkable Global . Body wall edema suggesting anasarca. Interlobular septal thickening is noted. This represents pulmo nary edema. There are mild groundglass opacities within the lungs with mosaic attenuation. IMPRESSION: 1. Mild pulmonary edema, improved since chest radiograph of September 28, 2021. 2. No consolidation to suggest pneumonia. 3 x 1.9 cm low-attenuation right middle lobe opacity with a ssociated volume loss and bronchiectasis. This favors scarring or atelectasis. A follow-up chest CT i n 6 months to ensure stability/resolution is recommended to exclude the less likely possibility of an underlying lesion. 3. Small bilateral pleural effusions. 4. Moderate cardiomegaly. Small pericardial effusion. 5. Decreased attenuation of the cardiac blood pool. This could indicate anemia. ACT 112: Negative or not required by law. Electronically signed by: Yandel Wright M.D. 09/29/2021 9:49 AM
--- NOTE | 2021-09-29 09:57 | Nephrology Consultation ---
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 Although did not have full session of dialysis yesterday however, electrolyte and volume status acceptable. Blood pressure slightly elevated. Acute drop in Hb to 8.8, denies any blood loss. -- plan for dialysis tomorrow for 3.5 hours, UF goal to reach estimated dry weight -- avoid IV fluid, dose medications for GFR less than 10 -- left arm nephrology precaution -- continue renal vitamins and Sevelamer 1 tab TIDM. -- epogen 22322 units with HD tomorrow --continue Amlodipine and lisinopril Will follow Thank you for allowing me to participate in your patient's care. It was a pleasure to see the Monet History of Present Illness Reason for Consultation: ESRD on hemodialysis. Attending Physician: Hermes Oconnell MD History of Present Illness Monet Pace is a 80-year-old female with past medical history significant for end-stage in on hemodialysis, hypertension admitted to hospital around with pneumonia and pleural effusion. Nephrology consult requested to manage dialysis while inpatient. EMR records were reviewed in detail during patient's visit. Monet presented to ER yesterday with body ache, she has tightness while she was getting dialysis as her regular schedule. [place] through the dialysis she could not continue the dialysis mainly because of back pain and body ache and presented to ER for further evaluation. She was noted to have left-sided pleural effusion and questionable atelectasis versus pneumonia and empirically being treated for pneumonia. Overall she feels much better this morning, denies any further chest tightness, no shortness of breath. ESRD secondary to ANCA vasculitis, on hemodialysis MWF for almost 5 years via left brachiocephalic AV fistula, dialyzes at [facility]. Blood pressure has been slightly slightly elevated but volume status, electrolyte acceptable. Allergies Allergy/AdvReac Type Severity Reaction Status Date / Time ciprofloxacin [From Cipro] Allergy Intermediate itchiness Verified 09/28/21 15:11 Home Medications Medication Instructions Recorded Confirmed Type albuterol sulfate 0.63 mg/3 mL 0.63 mg CONTINUOUS NEBULIZATION 05/13/21 09/28/21 History solution for nebulization QID PRN albuterol sulfate 90 mcg/actuation 2 puff INHALATION QID PRN 05/13/21 09/28/21 History aerosol inhaler docusate sodium 100 mg capsule 100 mg PO DAILY #30 cap 05/13/21 09/28/21 Rx (Colace) evening primrose oil 500 mg capsule 500 mg PO TID 05/13/21 09/28/21 History levothyroxine 112 mcg capsule 112 mcg PO DAILY 05/13/21 09/28/21 History lisinopril 40 mg tablet 40 mg PO DAILY 05/13/21 09/28/21 History omeprazole 40 mg capsule,delayed 40 mg PO DAILY 05/13/21 09/28/21 History release rosuvastatin 10 mg tablet 10 mg PO DAILY 05/13/21 09/28/21 History tiotropium bromide 2.5 2 puff INHALATION DAILY 05/13/21 09/28/21 History mcg/actuation mist for inhalation (Spiriva Respimat) vitamin B complex 1 tab PO DAILY #30 tab 05/13/21 09/28/21 Rx cholecalciferol (vitamin D3) 125 125 mcg PO DAILY 05/20/21 09/28/21 History mcg (5,000 unit) capsule amlodipine 10 mg tablet 10 mg PO DAILY 05/28/21 09/28/21 History sorbitol 70 % solution 60 ml PO DAILY PRN 05/28/21 09/28/21 History d-mannose 500 mg capsule 500 mg PO .qother cap 07/09/21 09/28/21 History fluticasone furoate 100 1 inh INHALATION DAILY 07/09/21 09/28/21 History mcg/actuation blister powder for inhalation (Arnuity Ellipta) hydralazine 10 mg tablet 10 mg PO BID 07/09/21 09/28/21 History sevelamer carbonate 800 mg tablet 800 mg PO DAILY tab 07/09/21 09/28/21 History terazosin 10 mg capsule 10 mg PO DAILY 09/28/21 09/28/21 History vitamin B complex-vitamin C-folic 1 tab PO DAILY 09/28/21 09/28/21 History acid 0.8 mg tablet (Sarika-Ashley) Patient History Medical History (Updated 09/29/21 @ 09:53 by Licha Bourgeois MD) ANCA-associated vasculitis Anemia due to chronic kidney disease Asthma Chronic constipation ESRD (end stage renal disease) on dialysis GERD (gastroesophageal reflux disease) Goodpasture's syndrome (2018) History of small bowel obstruction Hyperlipidemia Hypertension Hypothyroidism Melanocytic nevi, unspecified Secondary hyperparathyroidism of renal origin Urinary incontinence Surgical History H/O removal of cyst scalp H/O thyroidectomy age 14 History of partial colectomy (~2019) secondary to SBO Family History Father , Leukemia Leukemia Brother Parkinson disease Brother TIA (transient ischemic attack) Mother , age 93 No problems noted. Social History Smoking Status: Never smoker Second Hand Exposure: No; Do You Dip or Chew Tobacco: No; Tobacco Cessation Education Requested by Patient: No Hx Alcohol Use: No Hx Substance Use: No Preferred Language: Finnish Communication Ability: Effective Visual Impairment: No Limitations Hearing Ability: Normal Visual Training Aide Required: No Beliefs That Will Affect Care: None marital status: Current Living Situation: Spouse Current Living Situation Comment: Supportive Grandaughter - involved. Lives in a 2 story home Feels Safe at Home: Yes Physical Activity Frequency: Daily Seatbelt Use: always Sunscreen Use: Yes Assistive Devices: None Review of Systems Review of Systems: Detailed review of system was otherwise unremarkable except mentioned in HPI. Physical Exam Constitutional: WD/WN, vitals as above no acute distress Eyes: + anicteric sclerae ENMT: Ears: no hearing impairment Neck: normal visual inspection Respiratory: no respiratory distress and no cough Auscultation: + diminished lung sounds and + rhonchi Cardiovascular: Rate/Rhythm: regular rate and regular rhythm Extremities: no edema Gastrointestinal (Abdomen): Inspection/Auscultation: abdomen normal to inspection and normal bowel sounds Percussion/Palpation: abdomen soft; abdomen nontender Musculoskeletal: Extremities: extremities normal to inspection Skin: no rashes Neurologic: no focal motor deficits and not confused Psychiatric: Orientation: alert and oriented x 3 Affect: euthymic affect Results & Data ([facility]) Vital Signs (Past 12 Hours) Vital Signs Temp Pulse Pulse Resp BP Pulse Ox 09/29/21 07:33 73 18 98 09/29/21 07:18 36.7 C 62 17 168/67 H 99 09/29/21 06:23 93 09/29/21 06:10 60 09/29/21 04:00 36.5 C 69 18 136/64 94 09/28/21 23:00 36.5 C 73 18 146/67 H 92 09/28/21 22:17 70 PG Care Time/CCT Total # of Minutes Spent Total Time Spent with Patient: Total time spent is greater than 50% in coordination of care (as documented) at patient's floor/unit and/or counseling patient: Coding Level of Care Code 86720 Initial Inpt Care Lvl 3 Diagnoses ESRD (end stage renal disease) on dialysis N18.6; Z99.2 Hypertension I10 Anemia due to chronic kidney disease N18.9; D63.1 Pneumonia J18.9 Laterality: bilateral Lung location: lower lobe of lung Pneumonia type: due to unspecified organism Secondary hyperparathyroidism of renal origin N25.81 (1) Pneumonia Laterality: bilateral Lung location: lower lobe of lung Pneumonia type: due to unspecified organism Qualified Code(s): J18.9 - Pneumonia, unspecified organism
[2021-09-29] MEDS: ACETAMINOPHEN 325 MG TAB PO PRN (10:53)
--- NOTE | 2021-09-29 11:06 | Hospitalist Progress Note ---
Date of Service September 29, 2021 Assessment & Plan (1) Acute respiratory failure with hypoxia: Plan: - suspect that this is more related to volume overload/pulmonary vascular congestion in a HD patient who didn't have a complete session on 09/27 - CT w/o contrast ordered this AM, no evidence of PNA, no clinical sx to suggest PNA (afebrile, no leukocytosis or L shift on differential) - Stop Unasyn - Can continue nebs and complete Zithromax (more for anti-inflammatory pr operties) - Continue supplemental O2 to keep sat >90% - Suspect that this will improve after HD session on 09/30 (2) Asthma exacerbation: Plan: - Do not suspect this is the major cause of her illness - Given solu-medrol in ED which was transitioned to prednisone 40mg this morning - no acute bronchospasm on exam, taper steroids - Duonebs QID (3) ESRD (end stage renal disease) on dialysis: Plan: - Nephrology consulted, does not feel that she needs HD today, appreciate input - Will plan to have her scheduled HD session tomorrow (4) Anemia due to chronic kidney disease: Plan: - Hgb dropped to 8.8 on AM labs - Asymptomatic and denies blood loss - Repeat labs in AM (5) ANCA-associated vasculitis: Plan: Noted history of this causing her ESRD (6) Goodpasture's syndrome: (7) GERD (gastroesophageal reflux disease): Plan: Switch omeprazole for pantoprazole per hospital formulary (8) Hypertension: Plan: Continue lisinopril 40mg PO daily, terazosin 10mg PO daily, amlodipine 10mg PO daily, hydralazine 10mg PO BID (9) Hypothyroidism: Plan: TSH WNL 06/2021 Continue levothyroxine 112 mcg PO daily Plan: Follow up labs in AM Anticipate home tomorrow Will d/w Dr. Oconnell Admission and Anticipated Discharge Date Admission Date: September 28, 2021 Subjective Patient seen on rounds this morning. She is resting comfortably in bed, offers no new complaints/concerns. Denies cough, fever, coryza, chest pain. Stopped her HD session early yesterday d/t nausea, but none presently. She gets occasional shortness of breath, but none currently. She is requiring 1L of supplemental O2. Review of Systems Review of Systems: All systems reviewed and are unremarkable except as noted in HPI and below. Denies fever, chills, fatigue, headache, nasal congestion, sore throat, cough, chest pain, palpitations, orthopnea, PND, abdominal pain, n/v/d, constipation, dysuria, hematuria, frequency, back pain, joint pain or swelling, easy bruising or bleeding, skin lesions or rashes. Physical Exam Physical Exam: GENERAL: 80 yo thin/frail appearing elderly wf. NAD. LUNGS: Diminished in bases but otherwise ctab CARDIOVASCULAR: Regular rate and rhythm. 2/6 SALINAS. ABDOMEN: Soft, non-tender and non-distended. BS normal x 4 quad. EXTREMITIES: No edema. Non-tender. Peripheral pulses +2/4. L arm AV fistula w/ good thrill NEUROLOGIC: A&O x3. PSYCHIATRIC: Cooperative. Appropriate mood and affect. SKIN: Warm, dry, intact. No rashes or lesions. Results & Data Results & Data ([facility]) Vital Signs (Past 12 Hours) Vital Signs Temp Pulse Pulse Resp BP Pulse Ox 09/29/21 10:57 36.7 C 78 18 148/57 H 87 L 09/29/21 07:33 73 18 98 09/29/21 07:18 36.7 C 62 17 168/67 H 99 09/29/21 06:23 93 09/29/21 06:10 60 09/29/21 04:00 36.5 C 69 18 136/64 94 09/28/21 23:00 36.5 C 73 18 146/67 H [address] 09/29/21 08:47 CT OF THE CHEST WITHOUT IV CONTRAST CLINICAL HISTORY: chf v pneumonia. Shortness of breath. COMPARISON STUDY: Chest radiograph September 28, 2021. CT DOSE: 186.72 mGy.cm TECHNIQUE: Axial images of the chest were obtained without IV contrast. Images were reviewed in the axial, sagittal, and coronal planes. IV contrast was not administered for this examination. Automated exposure control was utilized for the study. A dose lowering technique was utilized adhering to the principles of ALARA. FINDINGS: No enlarged axillary, mediastinal or hilar lymph nodes are present. Moderate cardiomegaly is noted. There is decreased attenuation of the cardiac blood pool. There is a small pericardial effusion. There are small bilateral pleural effusions. No pneumothorax is present. Left lower lobe opacities with volume loss represent atelectasis. There is also subpleural right lower lobe opacity consistent with atelectasis. Note is made of right middle lobe volume loss with bronchiectasis. Note is made of a 3 x 1.9 cm low-attenuation right middle lobe opacity. There is no definite consolidation to suggest pneumonia. No acute fracture or suspicious lesion within the visualized thorax is present. Marked left renal atrophy is partially imaged on this exam. Upper abdomen is otherwise unremarkable Global. Body wall edema suggesting anasarca. Interlobular septal thickening is noted. This represents pulmonary edema. There are mild groundglass opacities within the lungs with mosaic attenuation. IMPRESSION: 1. Mild pulmonary edema, improved since chest radiograph of September 28, 2021. 2. No consolidation to suggest pneumonia. 3 x 1.9 cm low-attenuation right middle lobe opacity with associated volume loss and bronchiectasis. This favors scarring or atelectasis. A follow-up chest CT in 6 months to ensure stability/resolution is recommended to exclude the less likely possibility of an underlying lesion. 3. Small bilateral pleural effusions. 4. Moderate cardiomegaly. Small pericardial effusion. 5. Decreased attenuation of the cardiac blood pool. This could indicate anemia. ACT 112: Negative or not required by law. Electronically signed by: Yandel Wright M.D. 09/29/2021 9:49 AM PG Care Time/CCT Total # of Minutes Spent Total Time Spent with Patient: Total time spent is greater than 50% in coordination of care (as documented) at patient's floor/unit and/or counseling patient: Coding Level of Care Code 14370 Subseq Hosp Care Lvl 2 Diagnoses Acute respiratory failure with hypoxia J96.01 Asthma exacerbation J45.901 Asthma persistence: unspecified Asthma severity: unspecified severity ESRD (end stage renal disease) on dialysis N18.6; Z99.2 ANCA-associated vasculitis I77.6 Goodpasture's syndrome M31.0 GERD (gastroesophageal reflux disease) K21.9 Hypertension I10 Hypothyroidism E03.9 Anemia due to chronic kidney disease N18.9; D63.1 (1) Asthma exacerbation Asthma persistence: unspecified Asthma severity: unspecified severity Qualified Code(s): J45.901 - Unspecified asthma with (acute) exacerbation
[2021-09-29] MEDS ORDERED: ALBUT/IPRATROP 3MG/0.5MG NEB 3 ML VIAL NEB PRN (11:43)
[2021-09-29] MEDS: TERAZOSIN HCL 5 MG CAP PO SCH (20:22)
[2021-09-30] MEDS: ACETAMINOPHEN 325 MG TAB PO PRN ×2 (01:13→10:50)
[2021-09-30] MEDS: LEVOTHYROXINE SODIUM 112 MCG TABLET PO SCH (05:51)
[2021-09-30 06:26] LABS: Basophils # (auto) 0.02 K/uL (0-0.2); Basophils % (auto) 0.4 %; Eosinophils # (auto) 0.01 K/uL (0-0.5); Eosinophils % (auto) 0.2 %; Hematocrit (blood only) 30.3 % (37-47); Hemoglobin 9.4 g/dL (12.0-16.0); Immature Granulocytes # (auto) 0.03 K/uL (0.00-0.02); Immature Granulocytes % (auto) 0.6 %; Lymphocytes # (auto) 0.52 K/uL (1.2-3.4); Mean Corpuscular Hemoglobin 30.8 pg (25-34); Mean Corpuscular Volume 99.3 fL (80-100); Mean Platelet Volume 11.7 fL (7.4-10.4); Monocytes # (auto) 0.33 K/uL (0.11-0.59); Neutrophils % (auto) 80.8 %; Platelet Count 121 K/uL (130-400); RDW Coefficient of Variation 16.9 % (11.5-14.5); RDW Standard Deviation 61.9 fL (36.4-46.3); Red Blood Count 3.05 M/uL (4.2-5.4); White Blood Count 4.71 K/uL (4.8-10.8)
[2021-09-30 06:49] LABS: Ovalocytes 1+; Schistocytes Occasional
[2021-09-30 07:09] LABS: BUN Creatinine Ratio 7.4 (10-20); Calcium 8.2 mg/dl (8.5-10.1); Creatinine Clr Calc Pharmacy 3.6 ml/min; Est GFR (African American) 4.3 ml/min; Est GFR (Non-African American) 3.7 ml/min; Magnesium 2.2 mg/dl (1.7-2.4); Potassium 4.8 mmol/L (3.5-5.1)
[2021-09-30] MEDS: SEVELAMER HCL 800 MG TABLET PO SCH (08:07)
[2021-09-30] MEDS: AZITHROMYCIN 250 MG TAB PO SCH (08:07)
[2021-09-30] MEDS: UMECLIDINIUM BROMIDE 62.5MCG/BLISTER 7 PUFFS/INHALER INH SCH (08:08)
[2021-09-30] MEDS: DOCUSATE SODIUM 100 MG CAP PO SCH (08:08)
[2021-09-30] MEDS: CHOLECALCIFEROL 5,000 UNITS 125 MCG TAB PO SCH (08:08)
[2021-09-30] MEDS: FLUTICASONE FUROATE 100MCG 14 PUFFS/INHALER INH SCH (08:08)
[2021-09-30] MEDS: NEPHROCAPS PO SCH ×2 (08:09→11:59)
[2021-09-30] MEDS: predniSONE 20 MG TAB PO SCH (08:09)
[2021-09-30] MEDS: VITAMIN B COMPLEX TAB PO SCH (08:09)
[2021-09-30] MEDS: PANTOprazole 40 MG TAB PO SCH (08:09)
[2021-09-30] MEDS: ROSUVASTATIN CALCIUM 10 MG TAB PO SCH (08:09)
[2021-09-30] MEDS ORDERED: EPOETIN ALFA 20,000 UNITS/ML VIAL IV ONE (09:00)
--- NOTE | 2021-09-30 10:13 | Discharge Summary ---
Date of Service September 30, 2021 Admission HPI Per Admitting Provider Monet Pace is a 80 year old female with ESRD on dialysis who presents to the ER with shortness of breath, myalgias and back pain. The pain in her muscles were so severe today she had to cut her dialysis short. She reports her symptoms started over the weekend (last 3 days) with generalized feeling unwell with sinus pain, chills, back aches, headaches and leg shaking. She denies any cough, abdominal pain or diarrhea. She has not produced urine for a number of years. In the ER procalcitonin elevated and WBC decreased. CXR was concerning for left basal pneumonia and pulmonary edema. She was initially prescribed ceftriaxone and azithromycin (ceftriaxone switched to Unasyn) Principal Diagnosis 1. Hypoxic respiratory failure--resolved 2. Mild acute bronchitis 3. Mild pulmonary vascular congestion/fluid overload Discharge Exam GENERAL: 80 yo thin/frail appearing elderly wf. NAD. LUNGS: Diminished in bases but otherwise ctab CARDIOVASCULAR: Regular rate and rhythm with occasional ectopy. 2/6 SALINAS. ABDOMEN: Soft, non-tender and non-distended. BS normal x 4 quad. EXTREMITIES: No edema. Non-tender. Peripheral pulses +2/4. L arm AV fistula w/ good thrill NEUROLOGIC: A&O x3. PSYCHIATRIC: Cooperative. Appropriate mood and affect. SKIN: Warm, dry, intact. No rashes or lesions. Discharge Data Allergies Allergy/AdvReac Type Severity Reaction Status Date / Time ciprofloxacin [From Cipro] Allergy Intermediate itchiness Verified 09/28/21 15:11 Consultations 09/28/21 14:40 ED Decision to Admit Stat 09/28/21 17:23 Consult Nephrology Routine Ordered Studies 09/30/21 06:01 09/30/21 06:01 Chest X-Ray 09/28/21 11:32 XR chest 1V portable HISTORY: 80 years-old Female Chest Pain . Acute atypical chest pain COMPARISON: None TECHNIQUE: Portable AP view of the chest FINDINGS: The cardiac silhouette is enlarged. Pulmonary vascular congestion with interstitial coarsening. No pneumothorax. Trace right with small to moderate left pleural effusions. Left greater than right bibasilar consolidation. Atherosclerosis of the aorta. Degenerative changes of the shoulders and spine. Surgical clips of the left upper extremity. IMPRESSION: 1. Cardiomegaly with pulmonary vascular congestion and interstitial coarsening suggestive of pulmonary edema. 2. Left greater than right pleural effusions with bibasilar consolidation. Findings may represent atelectasis versus pneumonia. ACT 112: Negative or not required by law. The above report was generated using voice recognition software. It may contain grammatical, syntax or spelling errors. Electronically signed by: Dano Newell M.D. 09/28/2021 12:[address] 09/29/21 08:47 CT OF THE CHEST WITHOUT IV CONTRAST CLINICAL HISTORY: chf v pneumonia. Shortness of breath. COMPARISON STUDY: Chest radiograph September 28, 2021. CT DOSE: 186.72 mGy.cm TECHNIQUE: Axial images of the chest were obtained without IV contrast. Images were reviewed in the axial, sagittal, and coronal planes. IV contrast was not administered for this examination. Automated exposure control was utilized for the study. A dose lowering technique was utilized adhering to the principles of ALARA. FINDINGS: No enlarged axillary, mediastinal or hilar lymph nodes are present. Moderate cardiomegaly is noted. There is decreased attenuation of the cardiac blood pool. There is a small pericardial effusion. There are small bilateral pleural effusions. No pneumothorax is present. Left lower lobe opacities with volume loss represent atelectasis. There is also subpleural right lower lobe opacity consistent with atelectasis. Note is made of right middle lobe volume loss with bronchiectasis. Note is made of a 3 x 1.9 cm low-attenuation right middle lobe opacity. There is no definite consolidation to suggest pneumonia. No acute fracture or suspicious lesion within the visualized thorax is present. Marked left renal atrophy is partially imaged on this exam. Upper abdomen is otherwise unremarkable Global. Body wall edema suggesting anasarca. Interlobular septal thickening is noted. This represents pulmonary edema. There are mild groundglass opacities within the lungs with mosaic attenuation. IMPRESSION: 1. Mild pulmonary edema, improved since chest radiograph of September 28, 2021. 2. No consolidation to suggest pneumonia. 3 x 1.9 cm low-attenuation right middle lobe opacity with associated volume loss and bronchiectasis. This favors scarring or atelectasis. A follow-up chest CT in 6 months to ensure stability/resolution is recommended to exclude the less likely possibility of an underlying lesion. 3. Small bilateral pleural effusions. 4. Moderate cardiomegaly. Small pericardial effusion. 5. Decreased attenuation of the cardiac blood pool. This could indicate anemia. ACT 112: Negative or not required by law. Electronically signed by: Yandel Wright M.D. 09/29/2021 9:49 AM Hospital Course (1) Acute respiratory failure with hypoxia: - suspect that this is more related to volume overload/pulmonary vascular congestion in a HD patient who didn't have a complete session on 09/27 - CT w/o contrast ordered, no evidence of PNA, no clinical sx to suggest PNA (afebrile, no leukocytosis or L shift on differential) - Stopped Unasyn on 09/29 - Can continue nebs and complete Zithromax (more for anti-inflammatory properties) - Continue supplemental O2 to keep sat >90% - Suspect that this will improve after HD session on 09/30 (2) Acute bronchitis: - Perhaps mild case of bronchitis, but no clinical evidence of pneumonia - Treated with Zithromax and Prednisone, will complete tapering course of steroids and 3 more days of Zithromax - Neb treatments/supplemental O2 - Would encourage Mucinex which she can purchase OTC, use for the next 5-7 days (3) ESRD (end stage renal disease) on dialysis: - Anuric x several years - Nephrology consulted, will have HD session today prior to d/c - F/u with established [facility] and continue scheduled MWF sessions (4) Anemia due to chronic kidney disease: - Hgb dropped to 8.8 on AM labs - Asymptomatic and denies blood loss - H&H stable (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 Prescription for Zithromax and prednisone taper has been sent to her pharmacy. Would encourage her to follow-up with her primary care provider within 1 week of discharge following this hospitalization. In addition, would have her follow-up with her established [facility] as she is scheduled. Can resume scheduled HD sessions on Tuesday, Tuesday, and Tuesday. Above plan of care has been discussed with Dr. Hermes Oconnell who has also seen and evaluated this patient prior to discharge. Total Time Total Time Spent Total Time Spent (In Minutes): >30 minutes Discharge Plan Discharge Items Patient Disposition: Home - Self-Care Reason For Visit: ACUTE HYPOXIC RESPIRATORY FAILURE, PNA Discharge Diagnosis: bronchitis excess fluid in lungs Activity: Resume your previous activity Non-emergency contact: Primary Care Provider and Cutlery Grinder Call non-emergency contact if: you have any medication questions and your symptoms worsen Follow-up/Referrals: Radha Espinal DO [Primary Care Provider] - 10/13/21 9:20 am Diet: Dialysis Renal Addtl Attending Provider Instructions: You were hospitalized due to fluid overload in your lungs which is likely in part due to an incomplete session of dialysis. You also have symptoms that are consistent with bronchitis. At this time, there is no obvious evidence of pneumonia. You were treated with antibiotics as well as nebulizer treatments and oxygen. You were also seen in consult by our [facility] who has arranged for you to get your normal dialysis session prior to discharge. I do believe some of your symptoms will improve after your dialysis session. You have been weaned off of oxygen. You will not need this upon returning home. You can resume all of your medications that you are taking prior to this hospitalization as prescribed. You will be prescribed 3 more days of an antibiotic, Zithromax 250 mg. You are not due for a dose until tomorrow morning . Please complete the course. You are also being prescribed prednisone (a steroid), please take as directed in the morning with food. Again, you do not need to start this medication until tomorrow, 10/01/2021. It is recommended that you contact your family doctor in order to schedule a follow-up appointment with their office within 1 week of discharge. Also, contact your [facility] and follow-up with them as scheduled. In the event that you need medical records sent to your [facility], please have them fax a request to the hospital. In the event of any questions, please contact the nonemergency number as listed on your discharge paperwork. In the event of a medical emergency, call 911. Pending Studies at Discharge: No Stand-Alone Forms: My [facility], Smoking Cessation Medications and DC Order Prescriptions: New azithromycin 250 mg Tablet 250 mg PO QAM Qty: 3 RF: 0 prednisone 10 mg tablet 10 mg PO DAILY Qty: 12 RF: 0 Continued albuterol sulfate 90 mcg/actuation HFA aerosol inhaler 2 puff inhalation QID PRN (Reason: Shortness Of Breath) RF: 0 albuterol sulfate 0.63 mg/3 mL solution for nebulization 0.63 mg continuous nebulization QID PRN (Reason: Shortness Of Breath) RF: 0 vitamin B complex Tablet 1 tab PO DAILY Qty: 30 RF: 0 docusate sodium [Colace] 100 mg capsule 100 mg PO DAILY Qty: 30 RF: 0 evening primrose oil 500 mg capsule 500 mg PO TID RF: 0 levothyroxine 112 mcg capsule 112 mcg PO DAILY RF: 0 lisinopril 40 mg tablet 40 mg PO DAILY RF: 0 omeprazole 40 mg capsule,delayed release(DR/EC) 40 mg PO DAILY RF: 0 rosuvastatin 10 mg tablet 10 mg PO DAILY RF: 0 Spiriva Respimat 2.5 mcg/actuation mist 2 puff inhalation DAILY RF: 0 cholecalciferol (vitamin D3) 125 mcg (5,000 unit) capsule 125 mcg PO DAILY RF: 0 amlodipine 10 mg tablet 10 mg PO DAILY RF: 0 sorbitol 70 % solution 60 ml PO DAILY PRN (Reason: Unknown) RF: 0 sevelamer carbonate 800 mg tablet 800 mg PO DAILY RF: 0 d-mannose 500 mg capsule 500 mg PO .qother RF: 0 Arnuity Ellipta 100 mcg/actuation blister with device 1 inh inhalation DAILY RF: 0 hydralazine 10 mg tablet 10 mg PO BID RF: 0 Sarika-Ashley 0.8 mg tablet 1 tab PO DAILY RF: 0 terazosin 10 mg capsule 10 mg PO DAILY RF: 0 Discharge Orders: Discharge Order (Routine); Ordered 09/30/21 Ordered By: Karen Glasgow Admission Data Admit Date/Time: 09/28/21 15:05 Attending Provider: Hermes Oconnell Admit Provider: Chavez Norton Primary Care Provider: Radha Espinal Other Providers: Gianfranco Black ; Oconnell,Hermes J. Other Interventions: Discharge Summary Assessment (RN) Last Done: 09/30/21 17:22 Supervising Physician Co-Signing Physician Notes I supervised Karen Glasgow PA-C on the care of this patient. I interviewed and examined the patient independently of her. The plan is as written in her note except for any following changes/exceptions: None Seen during HD. Doing very well. Breathing completely at baseline. Discussed using light compression stockings for her ankle edema as I'm not sure that it represents true volume overload vs. some mild lymphedema. Coding Level of Care Code D/C DAY MANAGEMENT >30 MINS Diagnoses Acute respiratory failure with hypoxia J96.01 ESRD (end stage renal disease) on dialysis N18.6; Z99.2 Anemia due to chronic kidney disease N18.9; D63.1 ANCA-associated vasculitis I77.6 Goodpasture's syndrome M31.0 GERD (gastroesophageal reflux disease) K21.9 Hypertension I10 Hypothyroidism E03.9 Acute bronchitis J20.9
--- NOTE | 2021-09-30 10:21 | Nephrology Progress Note ---
Date of Service September 30, 2021 Assessment & Plan (1) ESRD (end stage renal disease) on dialysis: (2) Hypertension: (3) Anemia due to chronic kidney disease: (4) Pneumonia: (5) Secondary hyperparathyroidism of renal origin: Plan: ESRD on hemodialysis secondary to ANCA vasculitis, been on dialysis for 5 years via left brachiocephalic AV fistula, dialyzes at [facility] on Tuesday, Tuesday, Tuesday. Overall clinically doing better, blood pressure slightly elevated but volume status acceptable. Electrolyte acceptable. -- plan for dialysis toda for 3.5 hours, UF goal to reach estimated dry weight -- avoid IV fluid, dose medications for GFR less than 10 -- left arm nephrology precaution -- continue renal vitamins and Sevelamer 1 tab TIDM. -- epogen 87411 units with HD today -- continue Amlodipine and lisinopril Will follow. Admission and Anticipated Discharge Date Admission Date: September 28, 2021 Subjective Monet has been overall feeling better, denies shortness of breath, no cough. Blood pressure slightly elevated. Electrolyte acceptable. The Review of Systems Review of Systems: Detailed review of system was otherwise unremarkable except mentioned in HPI. Physical Exam Constitutional: WD/WN, vitals as above no acute distress Eyes: + anicteric sclerae Respiratory: no respiratory distress Auscultation: lungs clear to auscultation bilaterally Cardiovascular: Rate/Rhythm: regular rate and regular rhythm Extremities: no edema Skin: no rashes Neurologic: no focal motor deficits Psychiatric: Orientation: alert and oriented x 3 Results & Data ([facility]) Vital Signs (Past 12 Hours) Vital Signs Temp Pulse Pulse Resp BP Pulse Ox 09/30/21 07:42 36.6 C 65 16 164/74 H 98 09/30/21 06:11 65 09/30/21 04:00 36.5 C 70 18 136/72 94 09/30/21 02:24 68 09/29/21 23:00 36.8 C 67 18 146/73 H 96 PG Care Time/CCT Total # of Minutes Spent Total Time Spent with Patient: Total time spent is greater than 50% in coordination of care (as documented) at patient's floor/unit and/or counseling patient: Coding Level of Care Code 45880 Subseq Hosp Care Lvl 3 Diagnoses ESRD (end stage renal disease) on dialysis N18.6; Z99.2 Hypertension I10 Anemia due to chronic kidney disease N18.9; D63.1 Pneumonia J18.9 Laterality: bilateral Lung location: lower lobe of lung Pneumonia type: due to unspecified organism Secondary hyperparathyroidism of renal origin N25.81 (1) Pneumonia Laterality: bilateral Lung location: lower lobe of lung Pneumonia type: due to unspecified organism Qualified Code(s): J18.9 - Pneumonia, unspecified organism
[2021-09-30] MEDS: hydrALAZINE 10 MG TAB PO SCH (16:12)
[2021-09-30] MEDS: amLODIPine BESYLATE 5 MG TAB PO SCH (17:09)
[2021-09-30] MEDS: lisinopril 40 MG TAB PO SCH (17:09)
== END 2021-09-30 18:17 | disposition home or self-care (01) | DRG 640 ==
LOC: ED 10:39 → 2N 15:05 → SUATTDRO 15:05 → 2N 16:14

== ENCOUNTER 2023-08-23 17:08 | Inpatient (IN) ==
--- NOTE | 2023-08-23 17:34 | Emergency Department Note ---
Impression & Plan Acute hypoxemic respiratory failure, ESRD on dialysis, Pneumonia, Infection due to human metapneumovirus (hMPV), Acute hyperkalemia, Elevated troponin, Elevated procalcitonin ED Provider Note HISTORY OF PRESENT ILLNESS: Patient is an 82-year-old female presenting with shortness of breath and hypoxia. Patient was an outpatient appointment with her primary care provider today for follow-up for her shortness of breath and cough. She was noted to be hypoxic with oxygen saturations in the 70s. Her then brought her to the ER. She has saturations of 62% out in triage. Patient denies any supplemental oxygen use at baseline. She is an ESRD patient on Tuesday/Tuesday/Tuesday dialysis. She states she did get a full session on Tuesday. She denies any fevers at home, but reports she has had episodes of diaphoresis and chills. She denies any chest pain with her shortness of breath. Reports she has had a cough productive of some white sputum over the last 3 days. Denies any recent sick contact exposures. Denies any DVT or PE history. Denies any nausea or vomiting. Patient denies any recent antibiotic or steroid therapies. ROS: as above PHYSICAL EXAM: Constitutional: Patient appears in mild distress. HENT: Head: Normocephalic and atraumatic. Eyes: EOMI, PERRL Mouth/Throat: Mucous membranes moist. Patient has blue discoloration of her lips. Neck: Trachea midline. Neck supple. Cardiovascular: RRR, No murmurs, rubs or gallops. Intact distal pulses. Pulmonary/Chest: Patient is on 4 L nasal cannula with saturations of 93%. She is conversationally dyspneic. Coarse breath sounds in bilateral lung murillo. Abdominal: Abdomen soft, no tenderness, rebound or guarding. Musculoskeletal: No edema, tenderness or deformity noted. AV fistula noted in the left upper extremity with palpable thrill Skin: Warm and dry. Psychiatric: Appropriate mood and affect for situation. Neurological: Alert and keenly responsive. CN II-XII grossly intact, moving all extremities equally and fully. MDM: - Vitals signs showed hypertension and hypoxia. Patient was brought back from triage and placed into a resuscitation bay and IV access was obtained. She was placed on 4 L nasal cannula with improvement in her saturations to 93%. - History obtained via patient. History as above. - Chronic conditions affecting care: COPD; ESRD on M/W/F dialysis; HLD; HTN; asthma - Differential diagnoses include, but are not limited to: Congestive heart failure; acute coronary syndrome; COPD/asthma exacerbation; pulmonary edema; pulmonary embolism; pneumonia; pneumothorax; viral syndrome - Order placed for continuous cardiac monitoring. At this time, monitor showed rate of 89 bpm with normal sinus rhythm, per my interpretation. - External medical records reviewed. Primary care visit note from today was reviewed. Patient was noted to have oxygen saturations of 78% on room air. She was placed on 3 L supplemental oxygen and saturations of 95% were documented. - EKG interpreted by myself showed normal sinus rhythm. Rate 93 bpm. QT 382. No acute ischemic changes. Does have some irritable peaked T waves throughout her EKG concerning for hyperkalemia. - Laboratory workup interpreted by myself showed normal WBC but with slight left shift (neutrophils 6.6); hyperkalemia (K 5.7); elevated anion gap (16); ESRD (Cr 8.37); hypocalcemia (Ca 8.4); elevated troponin (36.7); elevated procalcitonin (0.76) - VBG within normal limits - Viral respiratory panel positive for human metapneumovirus - CXR showed pulmonary vascular congestion, per my interpretation. Radiology noted bilateral lower lung predominant airspace opacities concerning for pneumonia or aspiration. - Blood cultures obtained - Patient given IV vancomycin for sepsis coverage. - Patient given 1g IV calcium. Only given 500 cc NS, given her ESRD history - Discussion was had with telephonic nurse case manager about patient's case and need for admission - Hospitalist consulted for admission - Patient admitted to [facility] for further evaluation and management. ASSESSMENT AND PLAN: Diagnosis: Acute hypoxic respiratory failure; human metapneumovirus; pneumonia; hyperkalemia; elevated procalcitonin; elevated troponin; ESRD on hemodialysis Plan: admit Past Med/Surg History Medical History COPD (chronic obstructive pulmonary disease) Hemodialysis access, fistula mature Secondary hyperparathyroidism of renal origin Anemia due to chronic kidney disease Hyperlipidemia ESRD (end stage renal disease) on dialysis ANCA-associated vasculitis Urinary incontinence Hypertension GERD (gastroesophageal reflux disease) Hypothyroidism History of small bowel obstruction Chronic constipation Goodpasture's syndrome (2018) Asthma Surgical History H/O esophagogastroduodenoscopy S/P colonoscopy S/P arteriovenous (AV) fistula creation H/O removal of cyst History of partial colectomy (~2019) H/O thyroidectomy Family History Father Leukemia Prostate cancer Brother Parkinson disease Brother TIA (transient ischemic attack) Mother No problems noted. 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 Lives in a 2 story home Feels Safe at Home: Yes Diet: other Diet Comment: dialysis diet caffeine: Yes during the past year weight has: remained stable Dental Care, Regularly: Yes Physical Activity Frequency: Daily Seatbelt Use: always Sunscreen Use: Yes Assistive Devices: Glasses Allergies Allergies Allergy/AdvReac Type Severity Reaction Status Date / Time ciprofloxacin [From Cipro] Allergy Intermediate itchiness Verified 08/23/23 16:05 Home Meds Home Medications Medication Instructions Recorded Confirmed lisinopril 40 mg tablet 40 mg PO QAM 05/13/21 08/23/23 omeprazole 40 mg capsule,delayed 40 mg PO QAM 05/13/21 08/23/23 release rosuvastatin 10 mg tablet 10 mg PO DAILY 05/13/21 08/23/23 amlodipine 10 mg tablet 10 mg PO QAM 05/28/21 08/23/23 d-mannose 500 mg capsule 500 mg PO UD 07/09/21 08/23/23 terazosin 10 mg capsule 10 mg PO HS 09/28/21 08/23/23 vitamin B complex-vitamin C-folic 1 tab PO UD 09/28/21 08/23/23 acid 0.8 mg tablet (Sarika-Ashley) calcium carbonate (Tums) 200 mg PO BID 10/20/21 08/23/23 docusate sodium 100 mg capsule 100 mg PO QAM PRN Constipation 12/10/21 08/23/23 (Colace) evening primrose oil 500 mg capsule 500 mg PO BID 01/14/22 08/23/23 carvedilol 3.125 mg tablet 3.125 mg PO BID 06/08/22 08/23/23 gabapentin 100 mg capsule mg PO 06/14/23 08/23/23 vitamin E (dl, acetate) 450 mg 450 mg PO DAILY 06/14/23 08/23/23 (1,000 unit) capsule Previous Rx's Medication Instructions Recorded levothyroxine 112 mcg tablet 112 mcg PO DAILY #30 tabs 07/18/23 Results & Data (ED) Vital Signs Vital Signs - 24 hr 08/23/23 17:12 08/23/23 17:39 08/23/23 18:00 Temperature 36.8 C Temperature Source Temporal Artery Scan Pulse Rate 83 89 Pulse Rate [Right Finger] 91 H Respiratory Rate 22 22 Respiratory Effort / Characteristics Non-Labored Spontaneous Non-Labored Spontaneous Respiratory Depth Normal Normal Blood Pressure 166/73 H Blood Pressure [Right Arm] 164/69 H Blood Pressure Mean 104 Blood Pressure Mean [Right Arm] 100 Pulse Oximetry 62 L 96 Oxygen Delivery Method Room Air Nasal Cannula Oxygen Flow Rate Sepsis Recent Fever Within 48 Hours No Sepsis New/Unexplained Change in Mental Status No Sepsis Action Taken by Nursing No Action Required Pulse Oximetry Post Tiitration 08/23/23 18:01 08/23/23 18:01 Temperature Temperature Source Pulse Rate Pulse Rate [Right Finger] Respiratory Rate Respiratory Effort / Characteristics Respiratory Depth Blood Pressure Blood Pressure [Right Arm] Blood Pressure Mean Blood Pressure Mean [Right Arm] Pulse Oximetry 95 Oxygen Delivery Method Nasal Cannula Nasal Cannula Oxygen Flow Rate 4 4 Sepsis Recent Fever Within 48 Hours Sepsis New/Unexplained Change in Mental Status Sepsis Action Taken by Nursing Pulse Oximetry Post Tiitration 96 Laboratory Data 08/23/23 18:19 08/23/23 18:19 Lab Results 08/23/23 08/23/23 08/23/23 Range/Units 17:43 18:19 18:21 WBC 8.17 (4.8-10.8) K/ul RBC 4.47 (4.20-5.40) M/uL Hgb 13.7 (12.0-16.0) g/dl POC Hgb 15.3 (12.0-16.0) g/dl Hct 44.6 (37.0-47.0) % POC Hct 45 (37-47) % MCV 99.8 (80.0-100.0) fL MCH 30.6 (25.0-34.0) pg MCHC 30.7 L (32.0-36.0) g/dL RDW Std Deviation 53.0 H (36.4-46.3) fL RDW Coeff of Caroline 14.6 H (11.5-14.5) % Plt Count 102 L (130-400) K/uL MPV 11.0 (9.4-12.4) fL Immature Gran % (Auto) 0.5 % Neut % (Auto) 80.8 % Lymph % (Auto) 10.6 % [place] % (Auto) 7.1 % Eos % (Auto) 0.6 % Baso % (Auto) 0.4 % Neut # (Auto) 6.60 H (1.40-6.50) K/uL Lymph # (Auto) 0.87 L (1.20-3.40) K/uL [place] # (Auto) 0.58 (0.11-0.59) K/uL Eos # (Auto) 0.05 (0.00-0.50) K/uL Baso # (Auto) 0.03 (0.00-0.20) K/uL Immature Gran # (Auto) 0.04 (0.01-0.20) K/uL PT 10.4 (9.0-12.0) Seconds INR 0.9 (0.9-1.1) VBG pH 7.41 (7.36-7.41) VBG pCO2 49 (38-50) mmHg VBG pO2 24 mmHg VBG HCO3 31 mmol/L VBG O2 Saturation < 60.0 % VBG Base Excess 5.3 mEq/L POC Sodium 134 L (135-144) mmol/L Sodium 136 (136-145) mmol/L POC Potassium 5.7 H (3.3-5.0) mmol/L Potassium 5.7 H (3.5-5.1) mmol/L POC Chloride 95 L (101-112) mmol/L Chloride 91 L (98-107) mmol/L Carbon Dioxide 29 (21-32) mmol/L POC Total CO2 32 H (24-31) mmol/L Anion Gap 16 H (3-11) POC Anion Gap 14.0 L (16-25) mmol/L POC BUN 42 H (7-18) mg/dl BUN 49 H (6-23) mg/dl Creatinine 8.37 H* (0.6-1.2) mg/dl POC Creatinine 9.4 H* (0.6-1.3) mg/dl Est Cr Clr Drug Dosing 3.7 ml/min Est GFR ( Amer) 4.7 ml/min Est GFR (Non-Af Amer) 4.1 ml/min BUN/Creatinine Ratio 5.9 L (10-20) Glucose 95 (70-99(Fasting)) mg/dl POC Glucose (other) 98 (70-99) mg/dl Lactate 1.3 (0.4-2.0) mmol/L Calcium 8.4 L (8.6-10.3) mg/dl POC Ioniz Calcium Abimbola 0.89 L (1.12-1.32) mmol/l Magnesium 2.0 (1.7-2.4) mg/dl Total Bilirubin 0.5 (0.2-1.0) mg/dl Direct Bilirubin 0.1 (0-0.2) mg/dl AST 26 (13-39) U/L ALT 14 (7-52) U/L Alkaline Phosphatase 68 (34-104) U/L Troponin I High Sens 36.7 H (0-14) pg/ml Total Protein 7.1 (6.0-8.3) gm/dl Albumin 4.4 (3.4-5.0) gm/dl Procalcitonin 0.76 H (0-0.5) ng/ml Adenovirus (PCR) Not Detected (NotDetected) B. pertussis DNA (PCR) Not Detected (NotDetected) B.parapertussis DNA PCR Not Detected (NotDetected) C. pneumoniae DNA (PCR) Not Detected (NotDetected) Coronavirus OC43 (PCR) Not Detected (NotDetected) Coronavirus HKU1 (PCR) Not Detected (NotDetected) Coronavirus 229E (PCR) Not Detected (NotDetected) SARS-CoV-2 (PCR) Not Detected (NotDetected) Coronavirus NL63 (PCR) Not Detected (NotDetected) Human Metapneumovir PCR DETECTED A (NotDetected) Influenza Type A (PCR) Not Detected (NotDetected) Influenza Type B (PCR) Not Detected (NotDetected) M. pneumoniae (PCR) Not Detected (NotDetected) Parainfluenza 1 (PCR) Not Detected (NotDetected) Parainfluenza 2 (PCR) Not Detected (NotDetected) Parainfluenza 3 (PCR) Not Detected (NotDetected) Parainfluenza 4 (PCR) Not Detected (NotDetected) RSV (PCR) Not Detected (NotDetected) Entero/Rhino (PCR) Not Detected (NotDetected) Blood Type O Positive Antibody Screen NEGATIVE Administered Medications Piperacillin Sod/Tazobactam Sod (Zosyn) 4.5 gm in 100 mls @ 200 mls/hr IV NOW ONE Stop: 08/23/23 20:03 Last Admin: 08/23/23 19:41 Dose: 200 mls/hr Documented By: [facility] Imaging Data Radiologist's Impression: Chest X-Ray 08/23/23 17:31 XR chest 1V portable CLINICAL HISTORY: Sepsis TECHNIQUE: Single frontal radiograph of the chest was obtained. Comparison: Comparison is made to chest radiograph 09/28/2021 FINDINGS: No lines and tubes are seen. Cardiomegaly is noted. The aortic arch is calcified. Bilateral lower lung predominant airspace opacities are seen. Bronchial wall thickening is also noted. No evidence of pleural effusion or pneumothorax. IMPRESSION: Bilateral lower lung predominant airspace opacities which may represent pneumonia, and/or aspiration. Bronchial wall thickening is seen compatible with bronchitis. ACT 112: Negative or not required by law. Electronically signed by: Toni Tavares M.D. 08/23/2023 7:21 PM Discharge Plan Visit Data Chief Complaint: Shortness of Breath/Dyspnea Stated Complaint: LOW OX, 78 AT LOWEST ED Provider: Tammy Goldman Discharge Problem: Acute hypoxemic respiratory failure, ESRD on dialysis, Pneumonia, Infection due to human metapneumovirus (hMPV), Acute hyperkalemia, Elevated troponin, Elevated procalcitonin Forms Stand Alone Forms: [facility] Prescriptions Prescriptions: No Action lisinopril 40 mg tablet 40 mg PO QAM omeprazole 40 mg capsule,delayed release(DR/EC) 40 mg PO QAM rosuvastatin 10 mg tablet 10 mg PO DAILY evening primrose oil 500 mg capsule 500 mg PO BID Rx Instructions: give with meal/snack levothyroxine 112 mcg tablet 112 mcg PO DAILY Qty: 30 2RF amlodipine 10 mg tablet 10 mg PO QAM carvedilol 3.125 mg tablet 3.125 mg PO BID gabapentin 100 mg capsule PO vitamin E (dl, acetate) 450 mg (1,000 unit) capsule 450 mg PO DAILY d-mannose 500 mg capsule 500 mg PO UD Rx Instructions: QOD calcium carbonate [Tums] 200 mg calcium (500 mg) tablet,chewable 200 mg PO BID Sarika-Ashley 0.8 mg tablet 1 tab PO UD Rx Instructions: DAILY AT NOON terazosin 10 mg capsule 10 mg PO HS docusate sodium [Colace] 100 mg capsule 100 mg PO QAM PRN (Reason: Constipation) Referrals Referrals: Radha Espinal DO [Primary Care Provider] -
[2023-08-23 18:34] LABS: iSTAT Creatinine 9.4 mg/dl (0.6-1.3); iSTAT Hemoglobin 15.3 g/dl (12.0-16.0); iSTAT Ionized Calcium 0.89 mmol/l (1.12-1.32); iSTAT Potassium 5.7 mmol/L (3.3-5.0)
[2023-08-23 18:45] LABS: Base Excess VBG 5.3 mEq/L; HCO3 VBG 31 mmol/L; Oxygen Saturation VBG < 60.0 %; PCO2 VBG 49 mmHg (38-50); PO2 VBG 24 mmHg; pH VBG 7.41 (7.36-7.41)
[2023-08-23 18:58] LABS: Basophils # (auto) 0.03 K/uL (0.00-0.20); Basophils % (auto) 0.4 %; Eosinophils # (auto) 0.05 K/uL (0.00-0.50); Eosinophils % (auto) 0.6 %; Hematocrit (blood only) 44.6 % (37.0-47.0); Hemoglobin 13.7 g/dl (12.0-16.0); Immature Granulocytes # (auto) 0.04 K/uL (0.01-0.20); Immature Granulocytes % (auto) 0.5 %; Lymphocytes # (auto) 0.87 K/uL (1.20-3.40); Lymphocytes % (auto) 10.6 %; Mean Corpuscular Hemoglobin 30.6 pg (25.0-34.0); Mean Corpuscular Hgb Conc 30.7 g/dL (32.0-36.0); Mean Corpuscular Volume 99.8 fL (80.0-100.0); Monocytes # (auto) 0.58 K/uL (0.11-0.59); Monocytes % (auto) 7.1 %; Neutrophils % (auto) 80.8 %; Platelet Count 102 K/uL (130-400); RDW Coefficient of Variation 14.6 % (11.5-14.5); Red Blood Count 4.47 M/uL (4.20-5.40); White Blood Count 8.17 K/ul (4.8-10.8)
[2023-08-23 19:02] LABS: Adenovirus PCR Not Detected (NotDetected); Bordetella parapertussis PCR Not Detected (NotDetected); Bordetella pertussis PCR Not Detected (NotDetected); Chlamydia pneumoniae PCR Not Detected (NotDetected); Coronavirus 229E PCR Not Detected (NotDetected); Coronavirus CoV-2 (COVID19)PCR Not Detected (NotDetected); Coronavirus HKU1 PCR Not Detected (NotDetected); Coronavirus NL63 PCR Not Detected (NotDetected); Coronavirus OC43PCR Not Detected (NotDetected); Human Metapneumovirus PCR DETECTED (NotDetected); Influenza A PCR Not Detected (NotDetected); Influenza B PCR Not Detected (NotDetected); Mycoplasma pneumoniae PCR Not Detected (NotDetected); Parainfluenza Virus 1 PCR Not Detected (NotDetected); Parainfluenza Virus 2 PCR Not Detected (NotDetected); Parainfluenza Virus 3 PCR Not Detected (NotDetected); Parainfluenza Virus 4 PCR Not Detected (NotDetected); Respiratory Syncytial VirusPCR Not Detected (NotDetected); Rhinovirus/Enterovirus PCR Not Detected (NotDetected)
[2023-08-23 19:21] LABS: INR 0.9 (0.9-1.1); Prothrombin Time 10.4 Seconds (9.0-12.0)
--- NOTE | 2023-08-23 19:23 | XRay Report ---
XR chest 1V portable CLINICAL HISTORY: Sepsis TECHNIQUE: Single frontal radiograph of the chest was obtained. Comparison: Comparison is made to chest radiograph 09/28/2021 FINDINGS: No lines and tubes are seen. Cardiomegaly is noted. The aortic arch is calcified. Bilateral lower fariba g predominant airspace opacities are seen. Bronchial wall thickening is also noted. No evidence of pl eural effusion or pneumothorax. IMPRESSION: Bilateral lower lung predominant airspace opacities which may represent pneumonia, and/or aspiration. Bronchial wall thickening is seen compatible with bronchitis. ACT 112: Negative or not required by law. Electronically signed by: Toni Tavares M.D. 08/23/2023 7:21 PM
[2023-08-23 19:41] LABS: Albumin Level 4.4 gm/dl (3.4-5.0); BUN Creatinine Ratio 5.9 (10-20); Bilirubin Direct 0.1 mg/dl (0-0.2); Bilirubin,Total 0.5 mg/dl (0.2-1.0); Calcium 8.4 mg/dl (8.6-10.3); Creatinine Clr Calc Pharmacy 3.7 ml/min; Est GFR (African American) 4.7 ml/min; Est GFR (Non-African American) 4.1 ml/min; Potassium 5.7 mmol/L (3.5-5.1); Total Protein 7.1 gm/dl (6.0-8.3); Troponin I High Sensitivity 36.7 pg/ml (0-14)
[2023-08-23] MEDS: PIPERACILLIN/TAZOBACTAM 4.5 GM/100 ML BAG IV ONE (19:41)
[2023-08-23] MEDS: SODIUM CHLORIDE 0.9% 500 ML IV ONE (20:21)
[2023-08-23] MEDS: CALCIUM GLUCONATE 1,000 MG/60 ML BAG IV STA (20:54)
[2023-08-23] MEDS: SODIUM ZIRCONIUM CYCLOSILICATE 10 GM PACKET PO ONE (20:54)
--- NOTE | 2023-08-23 23:18 | History & Physical Report ---
Date of Service August 23, 2023 Assessment & Plan (1) Infection due to human metapneumovirus (hMPV): Plan: Isolation contact precautions Supportive treatment with guaifenesin, incentive spirometer, flutter valve (2) Acute hypoxemic respiratory failure: Plan: Baseline on room air. Aim O2 sats > 90% Secondary to human metapneumovirus viral pneumonia and likely a component of pulmonary edema which may be helped with an extended dialysis session Low suspicion of secondary bacterial pneumonia given short duration of symptoms, normal white blood count. Procalcitonin minimally elevated and not reliable in the setting of end-stage renal disease. (3) Acute hyperkalemia: Plan: Secondary to end-stage renal disease, likely needing extended dialysis sessions in the setting of acute illness. Start Lokelma to avoid potassium significant increasing overnight, repeat BMP q6h Ultimate treatment is with dialysis to be performed tomorrow Consult nephrology (4) Hypothyroidism: Plan: TSH 0.092 in May, repeat with a.m. labs Levothyroxine reduced from 137 to 112 mcg at that time, will continue 112 mcg unless TSH remains low (5) ESRD on dialysis: Plan: Consult nephrology (6) Elevated troponin: Plan: Suspect demand-ischemia Serial troponins overnight Consider TTE if significant raised (7) Hypertension: Plan: Continue carvedilol, lisinopril, amlodipine (8) GERD (gastroesophageal reflux disease): Plan: Switch omeprazole to pantoprazole Plan VTE prophylaxis - heparin 5000 units BID Diet - dialysis renal, low potassium Disposition - admit to med/tele Admission and Anticipated Discharge Date Admission Date: August 23, 2023 History of Present Illness Chief Complaint: Shortness of breath, hypoxia Primary Care Provider: Radha Espinal DO Monet Sanjeev is an 82-year-old female with end-stage renal disease on dialysis who presents to the ER with 3 to 4 days of cough, myalgias, fever. She was seen at her PCP office today with her O2 sats in the 70s therefore was advised to go to the ER via EMS (she refused coming by EMS). She has dialysis Fridays and reports having her full session yesterday. She denies any productive cough, nasal congestion, sinus pain, chest pain, abdominal pain, nausea, vomiting, diarrhea, urinary symptoms. No fevers or chills. Allergies Allergy/AdvReac Type Severity Reaction Status Date / Time ciprofloxacin [From Cipro] Allergy Intermediate itchiness Verified 08/23/23 16:05 Home Medications Medication Instructions Recorded Confirmed Type lisinopril 40 mg tablet 40 mg PO QAM 05/13/21 08/23/23 History omeprazole 40 mg capsule,delayed 40 mg PO QAM 05/13/21 08/23/23 History release rosuvastatin 10 mg tablet 10 mg PO DAILY 05/13/21 08/23/23 History amlodipine 10 mg tablet 10 mg PO QAM 05/28/21 08/23/23 History d-mannose 500 mg capsule 500 mg PO Q2D 07/09/21 08/23/23 History terazosin 10 mg capsule 10 mg PO HS 09/28/21 08/23/23 History vitamin B complex-vitamin C-folic 1 tab PO UD 09/28/21 08/23/23 History acid 0.8 mg tablet (Sarika-Ashley) calcium carbonate (Tums) 200 mg PO BID 10/20/21 08/23/23 History docusate sodium 100 mg capsule 100 mg PO QAM PRN Constipation 12/10/21 08/23/23 History (Colace) evening primrose oil 500 mg capsule 500 mg PO BID 01/14/22 08/23/23 History carvedilol 3.125 mg tablet 3.125 mg PO BID 06/08/22 08/23/23 History gabapentin 100 mg capsule 100 mg PO HS 06/14/23 08/23/23 History vitamin E (dl, acetate) 450 mg 450 mg PO DAILY 06/14/23 08/23/23 History (1,000 unit) capsule levothyroxine 112 mcg tablet 112 mcg PO DAILY #30 tabs 07/18/23 08/23/23 Rx simethicone 180 mg capsule (Gas-X 180 mg PO DAILY PRN Gi Upset 08/23/23 08/23/23 History Ultra-Strength) Past Med/Surg History Medical History COPD (chronic obstructive pulmonary disease) Hemodialysis access, fistula mature Secondary hyperparathyroidism of renal origin Anemia due to chronic kidney disease Hyperlipidemia ESRD (end stage renal disease) on dialysis ANCA-associated vasculitis Urinary incontinence Hypertension GERD (gastroesophageal reflux disease) Hypothyroidism History of small bowel obstruction Chronic constipation Goodpasture's syndrome (2018) Asthma Surgical History H/O esophagogastroduodenoscopy S/P colonoscopy S/P arteriovenous (AV) fistula creation H/O removal of cyst History of partial colectomy (~2019) H/O thyroidectomy Family History Father Leukemia Prostate cancer Brother Parkinson disease Brother TIA (transient ischemic attack) Mother No problems noted. Denies family history of Ovarian cancer Breast cancer Colorectal cancer Social History Smoking Status: Never smoker Second Hand Exposure: No; Do You Dip or Chew Tobacco: No; Hx Alcohol Use: No Hx Substance Use: No Preferred Language: French Communication Ability: Effective Visual Impairment: No Limitations Hearing Ability: Hard of Hearing Napkin Band Wrapper Required: No Beliefs That Will Affect Care: None marital status: Current Living Situation: Spouse Current Living Situation Comment: Supportive Grandaughter - involved. Lives in a 2 story home Feels Safe at Home: Yes Diet: other Diet Comment: dialysis diet caffeine: Yes during the past year weight has: remained stable Dental Care, Regularly: Yes Physical Activity Frequency: Daily Seatbelt Use: always Sunscreen Use: Yes Assistive Devices: Glasses Review of Systems Review of Systems: All systems reviewed & are unremarkable except as noted in HPI & below Physical Exam Constitutional: well developed and + frail appearing; + not well nourished and no acute distress ENMT: external ear and nose normal, oropharynx normal Respiratory: + labored breathing, + uses accessory mu scles and able to speak in complete sentences; expiratory phase not prolonged Cardiovascular: RRR, no murmur, no edema Gastrointestinal (Abdomen): normal bowel sounds, soft, nontender, no hepatosplenomegaly Musculoskeletal: no cyanosis or clubbing, extremities motor strength 5/5 Skin: no rashes, warm and dry Neurologic: moves all extremities and awake; not confused Psychiatric: A+Ox3, euthymic affect Genitourinary: no CVA tenderness Results & Data Results & Data Vital Signs (Past 12 Hours) Vital Signs Temp Pulse Pulse Resp BP BP Pulse Ox 08/23/23 22:00 84 20 154/76 H 100 08/23/23 21:23 88 08/23/23 20:00 88 22 165/75 H 98 08/23/23 18:01 08/23/23 18:01 95 08/23/23 18:00 91 H 22 164/69 H 96 08/23/23 17:39 89 08/23/23 17:12 36.8 C 83 22 166/73 H 62 L O2 Del Method O2 Flow Rate 08/23/23 22:00 08/23/23 21:23 08/23/23 20:00 08/23/23 18:01 Nasal Cannula 4 08/23/23 18:01 Nasal Cannula 4 08/23/23 18:00 Nasal Cannula 08/23/23 17:39 08/23/23 17:12 Room Air Laboratory Results Abnormal lab results 08/23/23 08/23/23 08/23/23 Range/Units 17:43 18:19 18:21 MCHC 30.7 L (32.0-36.0) g/dL RDW Std Deviation 53.0 H (36.4-46.3) fL RDW Coeff of Caroline 14.6 H (11.5-14.5) % Plt Count 102 L (130-400) K/uL Neut # (Auto) 6.60 H (1.40-6.50) K/uL Lymph # (Auto) 0.87 L (1.20-3.40) K/uL POC Sodium 134 L (135-144) mmol/L POC Potassium 5.7 H (3.3-5.0) mmol/L Potassium 5.7 H (3.5-5.1) mmol/L POC Chloride 95 L (101-112) mmol/L Chloride 91 L (98-107) mmol/L POC Total CO2 32 H (24-31) mmol/L Anion Gap 16 H (3-11) POC Anion Gap 14.0 L (16-25) mmol/L POC BUN 42 H (7-18) mg/dl BUN 49 H (6-23) mg/dl Creatinine 8.37 H* (0.6-1.2) mg/dl POC Creatinine 9.4 H* (0.6-1.3) mg/dl BUN/Creatinine Ratio 5.9 L (10-20) Calcium 8.4 L (8.6-10.3) mg/dl POC Ioniz Calcium Abimbola 0.89 L (1.12-1.32) mmol/l Troponin I High Sens 36.7 H (0-14) pg/ml Procalcitonin 0.76 H (0-0.5) ng/ml Human Metapneumovir PCR DETECTED A (NotDetected) 08/23/23 Range/Units 20:53 MCHC (32.0-36.0) g/dL RDW Std Deviation (36.4-46.3) fL RDW Coeff of Caroline (11.5-14.5) % Plt Count (130-400) K/uL Neut # (Auto) (1.40-6.50) K/uL Lymph # (Auto) (1.20-3.40) K/uL POC Sodium (135-144) mmol/L POC Potassium (3.3-5.0) mmol/L Potassium (3.5-5.1) mmol/L POC Chloride (101-112) mmol/L Chloride (98-107) mmol/L POC Total CO2 (24-31) mmol/L Anion Gap (3-11) POC Anion Gap (16-25) mmol/L POC BUN (7-18) mg/dl BUN (6-23) mg/dl Creatinine (0.6-1.2) mg/dl POC Creatinine (0.6-1.3) mg/dl BUN/Creatinine Ratio (10-20) Calcium (8.6-10.3) mg/dl POC Ioniz Calcium Abimbola (1.12-1.32) mmol/l Troponin I High Sens 61.4 H* D (0-14) pg/ml Procalcitonin (0-0.5) ng/ml Human Metapneumovir PCR (NotDetected) Diagnostic Findings XR chest 1V portable CLINICAL HISTORY: Sepsis TECHNIQUE: Single frontal radiograph of the chest was obtained. Comparison: Comparison is made to chest radiograph 09/28/2021 FINDINGS: No lines and tubes are seen. Cardiomegaly is noted. The aortic arch is calcified. Bilateral lower lung predominant airspace opacities are seen. Bronchial wall thickening is also noted. No evidence of pleural effusion or pneumothorax. IMPRESSION: Bilateral lower lung predominant airspace opacities which may represent pneumonia, and/or aspiration. Bronchial wall thickening is seen compatible with bronchitis. Medications Administered ER medications given: Zosyn 4.5 g IV Calcium gluconate 1000 mg IV ECG Rate (beats per minute): 93 Rhythm: normal sinus Findings: + LAFB and + RBBB (incomplete) Comparison ECG Date: from (September 28, 2021) Change: the following changes noted Code Status & VTE Plan Code Status DNR/DNI VTE Prophylaxis Plan VTE Prophylaxis will be ordered: Yes PG Care Time/CCT Total # of Minutes Spent Total Time Spent with Patient: Total time spent is greater than 50% in coordination of care (as documented) at patient's floor/unit and/or counseling patient: Coding Level of Care Code 84689 INT INP/OBS CARE 3/75MIN Diagnoses Infection due to human metapneumovirus (hMPV) B34.8 Acute hypoxemic respiratory failure J96.01 Acute hyperkalemia E87.5 Hypothyroidism E03.9 ESRD on dialysis N18.6; Z99.2 Elevated troponin R79.89 Hypertension I10 GERD (gastroesophageal reflux disease) K21.9
[2023-08-24] MEDS: carvediloL 3.125 MG TAB PO SCH (00:39)
[2023-08-24] MEDS: TERAZOSIN HCL 5 MG CAP PO SCH (00:39)
[2023-08-24] MEDS: GABAPENTIN 100 MG CAP PO SCH (00:39)
[2023-08-24] MEDS: CALCIUM CARBONATE 500 MG CHEWABLE TAB PO SCH (00:40)
[2023-08-24 00:56] LABS: BUN Creatinine Ratio 5.6 (10-20); Calcium 8.2 mg/dl (8.6-10.3); Creatinine Clr Calc Pharmacy 3.5 ml/min; Est GFR (African American) 4.4 ml/min; Est GFR (Non-African American) 3.8 ml/min; Potassium 5.4 mmol/L (3.5-5.1)
[2023-08-24 01:12] LABS: Troponin I High Sensitivity 109.5 pg/ml (0-14)
[2023-08-24] MEDS: LEVOTHYROXINE SODIUM 112 MCG TABLET PO SCH (06:28)
[2023-08-24 07:05] LABS: Basophils # (auto) 0.02 K/uL (0.00-0.20); Basophils % (auto) 0.2 %; Eosinophils # (auto) 0.02 K/uL (0.00-0.50); Eosinophils % (auto) 0.2 %; Hemoglobin 12.8 g/dl (12.0-16.0); Immature Granulocytes # (auto) 0.04 K/uL (0.01-0.20); Immature Granulocytes % (auto) 0.4 %; Lymphocytes # (auto) 1.03 K/uL (1.20-3.40); Lymphocytes % (auto) 9.7 %; Mean Corpuscular Volume 96.9 fL (80.0-100.0); Mean Platelet Volume 11.3 fL (9.4-12.4); Monocytes # (auto) 0.55 K/uL (0.11-0.59); Monocytes % (auto) 5.2 %; Neutrophils # (auto) 8.91 K/uL (1.40-6.50); Neutrophils % (auto) 84.3 %; Platelet Count 104 K/uL (130-400); RDW Coefficient of Variation 14.6 % (11.5-14.5); RDW Standard Deviation 52.3 fL (36.4-46.3); Red Blood Count 4.13 M/uL (4.20-5.40); White Blood Count 10.57 K/ul (4.8-10.8)
[2023-08-24 07:20] LABS: BUN Creatinine Ratio 5.9 (10-20); Calcium 8.1 mg/dl (8.6-10.3); Creatinine Clr Calc Pharmacy 3.4 ml/min; Est GFR (African American) 4.3 ml/min; Est GFR (Non-African American) 3.7 ml/min; Potassium 4.6 mmol/L (3.5-5.1)
[2023-08-24 07:35] LABS: Thyroid Stimulating Hormone 0.28 uIu/ml (0.300-4.500)
[2023-08-24 08:12] LABS: T4 Free Thyroxine 0.75 ng/dl (0.61-1.60)
[2023-08-24] MEDS: HEPARIN SOD 5,000 UNIT/0.5 ML VIAL SQ SCH (08:42)
[2023-08-24] MEDS: amLODIPine BESYLATE 5 MG TAB PO SCH (08:42)
[2023-08-24] MEDS: lisinopril 40 MG TAB PO SCH (08:42)
[2023-08-24] MEDS: PANTOprazole 40 MG TAB PO SCH (08:42)
[2023-08-24] MEDS: ROSUVASTATIN CALCIUM 10 MG TAB PO SCH (08:43)
--- NOTE | 2023-08-24 12:50 | Nephrology Consultation ---
Date of Consultation August 24, 2023 Assessment & Plan (1) ESRD on dialysis: (2) Acute hyperkalemia: (3) Anemia due to chronic kidney disease: (4) Secondary hyperparathyroidism of renal origin: (5) Elevated troponin: (6) Hypertension: Plan ESRD on hemodialysis secondary to ANCA vasculitis, been on dialysis for 5 years via left brachiocephalic AV fistula, dialyzes at [facility] on Tuesday, Tuesday, Tuesday. Admitted with hypoxic respiratory failure and possible pneumonia and hyperkalemia. Troponin has been trending up. Had full session of dialysis on Tuesday. K improved. Blood pressure fair. Hb >12 Acute drop in Hb to 8.8, denies any blood loss. -- plan for dialysis today for 3.15 hours, UF goal to reach estimated dry weight -- avoid IV fluid, dose medications for GFR less than 10 -- left arm nephrology precaution -- continue renal vitamins and check phosphate in am if elevated, continue on binder -- continue lisinopril Thank you for allowing me to participate in your patient's care. It was a pleasure to see the Monet History of Present Illness Reason for Consultation: ESRD on HD. Attending Physician: Romie Pena History of Present Illness Monet Pace is a 82-year-old female with past medical history significant for end-stage in on hemodialysis, hypertension admitted to hospital around with hypoxic respiratory failure and possible pneumonia and hyperkalemia. Nephrology consult requested to manage dialysis while inpatient. EMR records were reviewed in detail during patient's visit. Monet presented to ER yesterday with shortness of breath and hypoxia. She has been noticing shortness of breath, productive cough and chills at home and went to see her PCP yesterday and found to have hypoxic respiratory failure with room air oxygen saturation 62% and she was brought to ER for further evaluation. She was noted to have temperature of 37.2, chest x-ray showed bibasilar infiltrate, possible pneumonia. She was empirically given vancomycin and Zosyn. No leukocytosis. Labs are notable for hyperkalemia, potassium was 5.7, received Kayexalate and potassium improved to 4.6 this morning. Denies CP but troponin has been trending up. EKG with SR, no acute ST-T changes. ESRD secondary to ANCA vasculitis, on hemodialysis MWF for almost 7 years via left brachiocephalic AV fistula, dialyzes at [facility]. She had her regular dialysis Tuesday but she reports that lately she has been having some issues with her AV fistula, following with vascular surgery and plan to monitor at this time. Previously she had fistulogram and balloon dilatation. Does not make urine anymore, usually UF around 2 L or less each treatment. Blood pressure has been elevated since admission but improved this morning. Potassium normalized. Hb 12.3 Allergies Allergy/AdvReac Type Severity Reaction Status Date / Time ciprofloxacin [From Cipro] Allergy Intermediate itchiness Verified 08/23/23 16:05 Home Medications Medication Instructions Recorded Confirmed Type lisinopril 40 mg tablet 40 mg PO QAM 05/13/21 08/23/23 History omeprazole 40 mg capsule,delayed 40 mg PO QAM 05/13/21 08/23/23 History release rosuvastatin 10 mg tablet 10 mg PO DAILY 05/13/21 08/23/23 History amlodipine 10 mg tablet 10 mg PO QAM 05/28/21 08/23/23 History d-mannose 500 mg capsule 500 mg PO Q2D 07/09/21 08/23/23 History terazosin 10 mg capsule 10 mg PO HS 09/28/21 08/23/23 History vitamin B complex-vitamin C-folic 1 tab PO UD 09/28/21 08/23/23 History acid 0.8 mg tablet (Sarika-Ashley) calcium carbonate (Tums) 200 mg PO BID 10/20/21 08/23/23 History docusate sodium 100 mg capsule 100 mg PO QAM PRN Constipation 12/10/21 08/23/23 History (Colace) evening primrose oil 500 mg capsule 500 mg PO BID 01/14/22 08/23/23 History carvedilol 3.125 mg tablet 3.125 mg PO BID 06/08/22 08/23/23 History gabapentin 100 mg capsule 100 mg PO HS 06/14/23 08/23/23 History vitamin E (dl, acetate) 450 mg 450 mg PO DAILY 06/14/23 08/23/23 History (1,000 unit) capsule levothyroxine 112 mcg tablet 112 mcg PO DAILY #30 tabs 07/18/23 08/23/23 Rx simethicone 180 mg capsule (Gas-X 180 mg PO DAILY PRN Gi Upset 08/23/23 08/23/23 History Ultra-Strength) Patient History Medical History COPD (chronic obstructive pulmonary disease) Hemodialysis access, fistula mature Secondary hyperparathyroidism of renal origin Anemia due to chronic kidney disease Hyperlipidemia ESRD (end stage renal disease) on dialysis ANCA-associated vasculitis Urinary incontinence Hypertension GERD (gastroesophageal reflux disease) Hypothyroidism History of small bowel obstruction Chronic constipation Goodpasture's syndrome (2018) Asthma Surgical History H/O esophagogastroduodenoscopy S/P colonoscopy S/P arteriovenous (AV) fistula creation H/O removal of cyst History of partial colectomy (~2019) H/O thyroidectomy Family History Father Leukemia Prostate cancer Brother Parkinson disease Brother TIA (transient ischemic attack) Mother No problems noted. Denies family history of Ovarian cancer Breast cancer Colorectal cancer Social History Smoking Status: Never smoker Second Hand Exposure: No; Do You Dip or Chew Tobacco: No; Hx Alcohol Use: Yes Alcohol type: wine Alcohol Intake Frequency: Monthly or Less Hx Substance Use: No Preferred Language: Togolese Communication Ability: Effective Visual Impairment: No Limitations Hearing Ability: Hard of Hearing Photo Optics Technician Required: No Beliefs That Will Affect Care: None marital status: Current Living Situation: Spouse Current Living Situation Comment: Supportive Grandaughter - involved. Lives in a 2 story home Other Information That Helps Us Care for You: No Feels Safe at Home: Yes Safety Concerns: Feels Safe At This Time Diet: other Diet Comment: dialysis diet caffeine: Yes during the past year weight has: remained stable Dental Care, Regularly: Yes Physical Activity Frequency: Daily Seatbelt Use: always Sunscreen Use: Yes Assistive Devices: None Review of Systems Review of Systems: All systems reviewed & are unremarkable except as noted in Subjective Physical Exam Constitutional: WD/WN, vitals as above no acute distress Eyes: + anicteric sclerae Neck: normal visual inspection Respiratory: no respiratory distress Auscultation: + crackles; no wheezes Gastrointestinal (Abdomen): Inspection/Auscultation: abdomen normal to inspection Percussion/Palpation: abdomen soft; abdomen nontender Musculoskeletal: Extremities: extremities normal to inspection Neurologic: no focal motor deficits Psychiatric: Orientation: alert and oriented x 3 Affect: euthymic affect Results & Data Vital Signs (Past 12 Hours) Vital Signs Temp Pulse Pulse Resp BP Pulse Ox O2 Del Method 08/24/23 07:38 66 18 111/63 99 Room Air 08/24/23 07:37 65 08/24/23 03:30 37.2 C 72 18 126/61 97 Nasal Cannula 08/24/23 00:52 83 O2 Flow Rate 08/24/23 07:38 4 08/24/23 07:37 08/24/23 03:30 3 08/24/23 00:52 PG Care Time/CCT Total # of Minutes Spent Total Time Spent with Patient: Total time spent is greater than 50% in coordination of care (as documented) at patient's floor/unit and/or counseling patient: Coding Level of Care Code 42604 INT INP/OBS CARE 3/75MIN Diagnoses ESRD on dialysis N18.6; Z99.2 Acute hyperkalemia E87.5 Anemia due to chronic kidney disease N18.9; D63.1 Secondary hyperparathyroidism of renal origin N25.81 Elevated troponin R79.89 Hypertension I10
[2023-08-24] MEDS ORDERED: Nursing to Pharmacy Communication SCH (18:00)
[2023-08-24] MEDS: ACETAMINOPHEN 325 MG TAB PO SCH (18:22)
[2023-08-24] MEDS: ACETAMINOPHEN 325 MG TAB PO ONE (18:31)
--- NOTE | 2023-08-24 22:19 | Hospitalist Progress Note ---
Date of Service August 24, 2023 Assessment & Plan (1) Infection due to human metapneumovirus (hMPV): Plan: Isolation contact precautions Supportive treatment with guaifenesin, incentive spirometer, flutter valve continues on supplemental oxygen (2) Acute hypoxemic respiratory failure: Plan: Baseline on room air. Aim O2 sats > 90% Secondary to human metapneumovirus viral pneumonia and likely a component of pulmonary edema which may be helped with an extended dialysis session Low suspicion of secondary bacterial pneumonia given short duration of symptoms, normal white blood count. Procalcitonin minimally elevated and not reliable in the setting of end-stage renal disease. Appears to be improving. wean down O2 not on home O2 (3) Acute hyperkalemia: Plan: Secondary to end-stage renal disease, likely needing extended dialysis sessions in the setting of acute illness. Start Lokelma to avoid potassium significant increasing overnight, repeat BMP q6h Consult nephrology on dialysis on 08/23 (4) Hypothyroidism: Plan: TSH 0.092 in May, repeat with a.m. labs Levothyroxine reduced from 137 to 112 mcg at that time, will continue 112 mcg unless TSH remains low (5) ESRD on dialysis: Plan: Consult nephrology (6) Elevated troponin: Plan: Type 2 VT due to demand ischemia Pt with severe hypoxia, acute respiratory failure has troponin increase from 61 to 181. EKG shows T wave abnormalities. 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 Risk Factor(s): As above, ESRD, pneumonia Treatment: Weight, BMI, RD consult, I&O Plan VTE prophylaxis - heparin 5000 units BID Diet - dialysis renal, low potassium Disposition - admit to med/tele Admission and Anticipated Discharge Date Admission Date: August 23, 2023 Subjective Patient reports no new symptoms Review of Systems Review of Systems: All systems reviewed & are unremarkable except as noted in HPI & below Physical Exam Constitutional: well developed and + frail appearing; + not well nourished and no acute distress ENMT: external ear and nose normal, oropharynx normal Respiratory: normal respiratory effort and able to speak in complete sentences; does not use accessory muscles Cardiovascular: RRR, no murmur, no edema Gastrointestinal (Abdomen): normal bowel sounds, soft, nontender, no hepatosplenomegaly Musculoskeletal: no cyanosis or clubbing, extremities motor strength 5/5 Skin: no rashes, warm and dry Neurologic: moves all extremities and awake; not confused Psychiatric: A+Ox3, euthymic affect Genitourinary: no CVA tenderness Results & Data Results & Data Vital Signs (Past 12 Hours) Vital Signs Temp Pulse Pulse Pulse Resp BP BP 08/24/23 21:40 75 103/55 L 08/24/23 19:43 08/24/23 19:32 36.6 C 78 18 107/56 L 08/24/23 19:30 36.4 C L 74 125/55 L 08/24/23 18:30 74 107/48 L 08/24/23 18:00 69 115/45 L 08/24/23 17:53 67 112/52 L 08/24/23 17:45 70 79/40 L 08/24/23 17:30 72 84/47 L 08/24/23 17:00 67 106/50 L 08/24/23 16:30 65 104/48 L 08/24/23 16:00 64 105/49 L 08/24/23 15:55 64 08/24/23 15:30 63 99/48 L 08/24/23 15:16 64 106/55 L 08/24/23 15:09 68 08/24/23 13:32 72 08/24/23 12:40 72 08/24/23 12:30 36.4 C L 65 18 112/52 L Pulse Ox O2 Del Method O2 Flow Rate 08/24/23 21:40 93 Nasal Cannula 2 08/24/23 19:43 96 Nasal Cannula 2 08/24/23 19:32 92 Nasal Cannula 3 08/24/23 19:30 08/24/23 18:30 08/24/23 18:00 08/24/23 17:53 08/24/23 17:45 08/24/23 17:30 08/24/23 17:00 08/24/23 16:30 08/24/23 16:00 08/24/23 15:55 08/24/23 15:30 08/24/23 15:16 08/24/23 15:09 08/24/23 13:32 08/24/23 12:40 08/24/23 12:30 93 Nasal Cannula 3 PG Care Time/CCT Total # of Minutes Spent Total Time Spent with Patient: Total time spent is greater than 50% in coordination of care (as documented) at patient's floor/unit and/or counseling patient: Coding Level of Care Code 71751 SUB INP/OBS CARE 2/35MIN Diagnoses Infection due to human metapneumovirus (hMPV) B34.8 Acute hypoxemic respiratory failure J96.01 Acute hyperkalemia E87.5 Hypothyroidism E03.9 ESRD on dialysis N18.6; Z99.2 Elevated troponin R79.89 Hypertension I10 GERD (gastroesophageal reflux disease) K21.9
[2023-08-25 05:22] LABS: Hematocrit (blood only) 39.5 % (37.0-47.0); Hemoglobin 12.8 g/dl (12.0-16.0); Mean Corpuscular Hemoglobin 31.3 pg (25.0-34.0); Mean Corpuscular Hgb Conc 32.4 g/dL (32.0-36.0); Mean Corpuscular Volume 96.6 fL (80.0-100.0); Mean Platelet Volume 11.3 fL (9.4-12.4); Platelet Count 104 K/uL (130-400); RDW Coefficient of Variation 14.5 % (11.5-14.5); RDW Standard Deviation 51.6 fL (36.4-46.3); Red Blood Count 4.09 M/uL (4.20-5.40)
[2023-08-25 05:37] LABS: BUN Creatinine Ratio 4.4 (10-20); Calcium 8.2 mg/dl (8.6-10.3); Creatinine Clr Calc Pharmacy 5.9 ml/min; Est GFR (African American) 8.2 ml/min; Est GFR (Non-African American) 7.1 ml/min; Potassium 4.2 mmol/L (3.5-5.1)
[2023-08-25 06:07] LABS: C Reactive Protein 36.05 mg/dl (0-0.5)
[2023-08-25 07:53] LABS: Troponin I High Sensitivity 91.4 pg/ml (0-14)
--- NOTE | 2023-08-25 08:48 | Hospitalist Progress Note ---
Date of Service August 25, 2023 Assessment & Plan (1) Infection due to human metapneumovirus (hMPV): Plan: Patient presented with acute respiratory distress with hypoxia, found to be positive for human metapneumovirus, also had hyperkalemia, patient is a dialysis patient and subsequently had more urgent dialysis treatment. Minor chest x-ray changes the right lower lobe, isolation contact precautions Supportive treatment with guaifenesin, incentive spirometer, flutter valve continues on supplemental oxygen with productive sputum and mrsa nasal screen positive, will use doxycycline (2) ESRD on dialysis: Plan: Consult nephrology Acute hyperkalemia now resolved, secondary to end-stage renal disease, likely needing extended dialysis sessions in the setting of acute illness. Start Lokelma to avoid potassium significant increasing overnight, repeat BMP q6h Consult nephrology continuing dialysis (3) Elevated troponin: Plan: Type 2 MS due to demand ischemia Pt with severe hypoxia, acute respiratory failure has troponin increase from 61 to 181. EKG shows T wave abnormalities. Suspect demand-ischemia Troponins did peak at 181 will await echo result Hypertension and coronary artery disease continue carvedilol, lisinopril, amlodipine (4) Hypothyroidism: Plan: Chronic stable TSH 0.092 in May, repeat with a.m. 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 Risk Factor(s): As above, ESRD, pneumonia Treatment: Weight, BMI, RD consult, I&O Plan VTE prophylaxis - heparin 5000 units BID Diet - dialysis renal, low potassium Admission and Anticipated Discharge Date Admission Date: August 23, 2023 Subjective pt states she feel better than on arrival has cough with green phlegm still oxygen requirement Physical Exam Physical Exam: Pt with bibasilar rhonchi and musical breath tones not using accessory muscles at this time Results & Data Results & Data Vital Signs (Past 12 Hours) Vital Signs Temp Pulse Pulse Resp BP Pulse Ox O2 Del Method 08/25/23 07:45 89 08/25/23 07:32 99.5 F 69 20 139/60 96 Nasal Cannula 08/25/23 03:37 98.4 F 70 16 159/69 H 98 Nasal Cannula 08/24/23 22:47 98.6 F 65 16 120/63 98 Nasal Cannula 08/24/23 21:49 69 08/24/23 21:40 75 103/55 L 93 Nasal Cannula O2 Flow Rate 08/25/23 07:45 08/25/23 07:32 2 08/25/23 03:37 3 08/24/23 22:47 3 08/24/23 21:49 08/24/23 21:40 2 Laboratory Results review chemistry review cbc PG Care Time/CCT Total # of Minutes Spent Total Time Spent with Patient: Total time spent is greater than 50% in coordination of care (as documented) at patient's floor/unit and/or counseling patient: Coding Level of Care Code 64820 SUB INP/OBS CARE 2/35MIN Diagnoses Infection due to human metapneumovirus (hMPV) B34.8 ESRD on dialysis N18.6; Z99.2 Elevated troponin R79.89 Hypothyroidism E03.9 GERD (gastroesophageal reflux disease) K21.9
--- NOTE | 2023-08-25 11:57 | Nephrology Progress Note ---
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 Admitted with hypoxic respiratory failure and possible pneumonia with with human metapneumovirus and hyperkalemia. Had dialysis yesterday. Blood pressure fair. Hb stable. -- next dialysis tomorrow. -- avoid IV fluid, dose medications for eGFR less than 10 -- left arm nephrology precaution -- continue renal vitamins. Admission and Anticipated Discharge Date Admission Date: August 23, 2023 Komal Healy was seen and evaluated this morning. She had dialysis yesterday as regular schedule. Reports feeling much better, less short of breath, feeling close to her baseline. Blood pressure well-controlled. Review of Systems Review of Systems: Detailed review of system was done and pertinent positives and negatives are mentioned above. Physical Exam Constitutional: WD/WN, vitals as above no acute distress Eyes: + anicteric sclerae Neck: normal visual inspection Respiratory: no respiratory distress Auscultation: no crackles and no wheezes Cardiovascular: RRR, no murmur, no edema Extremities: + AV fistula (left BC AVF with thrill and bruit.); no edema Musculoskeletal: Extremities: extremities normal to inspection Neurologic: no focal motor deficits Psychiatric: Orientation: alert and oriented x 3 Affect: euthymic affect Results & Data Vital Signs (Past 12 Hours) Vital Signs Temp Pulse Pulse Resp BP Pulse Ox O2 Del Method 08/25/23 11:22 36.8 C 64 20 121/66 94 Nasal Cannula 08/25/23 09:08 Nasal Cannula 08/25/23 07:45 89 08/25/23 07:32 37.5 C 69 20 139/60 96 Nasal Cannula 08/25/23 03:37 36.9 C 70 16 159/69 H 98 Nasal Cannula O2 Flow Rate 08/25/23 11:22 2 08/25/23 09:08 2 08/25/23 07:45 08/25/23 07:32 2 08/25/23 03:37 3 PG Care Time/CCT Total # of Minutes Spent Total Time Spent with Patient: Total time spent is greater than 50% in coordination of care (as documented) at patient's floor/unit and/or counseling patient: Coding Level of Care Code 15821 SUB INP/OBS CARE 2/35MIN Diagnoses ESRD on dialysis N18.6; Z99.2 Acute hyperkalemia E87.5 Anemia due to chronic kidney disease N18.9; D63.1 Secondary hyperparathyroidism of renal origin N25.81 Elevated troponin R79.89 Hypertension I10
[2023-08-25] MEDS: AZITHROMYCIN 250 MG TAB PO ONE (13:28)
--- NOTE | 2023-08-25 17:30 | XCELERA ---
[id number] \\[email or web address]\[id number]
[2023-08-25] MEDS: ACETAMINOPHEN 325 MG TAB PO PRN (21:09)
--- NOTE | 2023-08-26 05:53 | Electrocardiogram Report ---
Test Reason : Blood Pressure : / mmHG Vent. Rate : 093 BPM Atrial Rate : 093 BPM P-R Int : 150 ms QRS Dur : 096 ms QT Int : 382 ms P-R-T Axes : 077 -86 067 degrees QTc Int : 474 ms Normal sinus rhythm Possible Left atrial enlargement Incomplete right bundle branch block Left anterior fascicular block Septal infarct , age undetermined Abnormal ECG When compared with ECG of 28-SEP-2021 11:52, Premature supraventricular complexes are no longer Present Septal infarct is now Present Confirmed by Kyle Bailey ([id number]) on 08/26/2023 5:53:07 AM Referred By: REFERRED SELF Confirmed By:Kyle Bailey
[2023-08-26 06:12] LABS: Hematocrit (blood only) 38.7 % (37.0-47.0); Hemoglobin 12.4 g/dl (12.0-16.0); Mean Corpuscular Hemoglobin 31.5 pg (25.0-34.0); Mean Corpuscular Volume 98.2 fL (80.0-100.0); Mean Platelet Volume 10.8 fL (9.4-12.4); Platelet Count 125 K/uL (130-400); RDW Coefficient of Variation 14.3 % (11.5-14.5); RDW Standard Deviation 51.6 fL (36.4-46.3); Red Blood Count 3.94 M/uL (4.20-5.40); White Blood Count 8.74 K/ul (4.8-10.8)
[2023-08-26 06:34] LABS: BUN Creatinine Ratio 6.2 (10-20); Calcium 8.3 mg/dl (8.6-10.3); Creatinine Clr Calc Pharmacy 3.7 ml/min; Est GFR (African American) 4.8 ml/min; Est GFR (Non-African American) 4.2 ml/min; Magnesium 2.2 mg/dl (1.7-2.4); Potassium 4.1 mmol/L (3.5-5.1)
[2023-08-26] MEDS: AZITHROMYCIN 250 MG TAB PO SCH (08:46)
--- NOTE | 2023-08-26 10:20 | Nephrology Progress Note ---
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 Admitted with hypoxic respiratory failure and pneumonia with human metapneumovirus and hyperkalemia. On azithromycin. Overall doing better. Has been off of oxygen. Blood pressure relatively low, asymptomatic. Hemoglobin above 12 -- dialysis today as regular schedule. -- avoid IV fluid, dose medications for eGFR less than 10 -- left arm nephrology precaution -- continue renal vitamins. Admission and Anticipated Discharge Date Admission Date: August 23, 2023 Komal Healy was seen and evaluated this morning. She has been feeling better but had an episode of diarrhea this morning. She has been moving around without oxygen. Blood pressure relatively low but asymptomatic. Review of Systems Review of Systems: Detailed review of system was done and pertinent positives and negatives are mentioned above. Physical Exam Constitutional: no acute distress Respiratory: no respiratory distress Auscultation: + crackles and + wheezes Cardiovascular: RRR, no murmur, no edema Extremities: + AV fistula (left BC AVF with thrill and bruit) Gastrointestinal (Abdomen): Inspection/Auscultation: abdomen normal to inspection Percussion/Palpation: abdomen soft; abdomen nontender Results & Data Vital Signs (Past 12 Hours) Vital Signs Temp Pulse Pulse Pulse Resp BP BP 08/26/23 10:00 67 102/59 L 08/26/23 09:45 64 121/56 L 08/26/23 09:36 36.7 C 62 08/26/23 07:40 08/26/23 07:40 08/26/23 07:32 36.4 C L 70 20 109/60 08/26/23 07:15 64 08/26/23 06:01 08/26/23 03:28 36.5 C 64 16 108/60 08/25/23 22:39 36.7 C 64 18 102/57 L Pulse Ox O2 Del Method O2 Flow Rate 08/26/23 10:00 08/26/23 09:45 08/26/23 09:36 08/26/23 07:40 Room Air 08/26/23 07:40 93 Room Air 08/26/23 07:32 90 Room Air 08/26/23 07:15 08/26/23 06:01 93 Room Air 08/26/23 03:28 92 Room Air 08/25/23 22:39 97 Nasal Cannula 2.5 PG Care Time/CCT Total # of Minutes Spent Total Time Spent with Patient: Total time spent is greater than 50% in coordination of care (as documented) at patient's floor/unit and/or counseling patient: Coding Level of Care Code 25933 SUB INP/OBS CARE 2/35MIN Diagnoses ESRD on dialysis N18.6; Z99.2 Anemia due to chronic kidney disease N18.9; D63.1 Acute hyperkalemia E87.5 Secondary hyperparathyroidism of renal origin N25.81 Elevated troponin R79.89 Hypertension I10
--- NOTE | 2023-08-26 12:05 | Hospitalist Progress Note ---
Date of Service August 26, 2023 Assessment & Plan (1) Infection due to human metapneumovirus (hMPV): Plan: Patient presented with acute respiratory distress with hypoxia, found to be positive for human metapneumovirus, Minor chest x-ray changes the right lower lobe, isolation contact precautions Supportive treatment with guaifenesin, incentive spirometer, flutter valve intermittently has been off oxygen will need 2 step with productive sputum and mrsa nasal screen positive, will use azithromycin (2) ESRD on dialysis: Plan: acute on chronic renal failure/ESRD, urgert dialysis initially with treatment of hyperkalemia Acute hyperkalemia now resolved, secondary to end-stage renal disease, likely needing extended dialysis sessions in the setting of acute illness. Start Lokelma to avoid potassium significant increasing overnight, repeat BMP q6h Front Office Secretary nephrology continuing dialysis (3) Elevated troponin: Plan: Type 2 PA due to demand ischemia Pt with severe hypoxia, acute respiratory failure has troponin increase from 61 to 181. EKG shows T wave abnormalities. Suspect demand-ischemia Troponins did peak at 181 ECHO stable EF, moderate pulmonary hypertension Hypertension and coronary artery disease continue carvedilol, lisinopril, amlodipine (4) Hypothyroidism: Plan: Chronic stable TSH 0.092 in May, repeat with a.m. 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 Risk Factor(s): As above, ESRD, pneumonia Treatment: Weight, BMI, RD consult, I&O Plan VTE prophylaxis - heparin 5000 units BID Diet - dialysis renal, low potassium Admission and Anticipated Discharge Date Admission Date: August 23, 2023 Subjective pt was seen in dialysis and later in her room with her subjectively feeling better, still with cough and some sputum production Physical Exam Physical Exam: Pulm exam with rhonchi at the right base left base is cleared out better air movement today Cardiac exam is regular without murmurs Results & Data Results & Data Vital Signs (Past 12 Hours) Vital Signs Temp Pulse Pulse Pulse Resp BP BP 08/26/23 11:30 65 97/47 L 08/26/23 11:00 61 102/52 L 08/26/23 10:30 61 110/49 L 08/26/23 10:00 67 102/59 L 08/26/23 09:45 64 121/56 L 08/26/23 09:36 98.1 F 62 08/26/23 07:40 08/26/23 07:40 08/26/23 07:32 97.5 F L 70 20 109/60 08/26/23 07:15 64 08/26/23 06:01 08/26/23 03:28 97.7 F 64 16 108/60 Pulse Ox O2 Del Method 08/26/23 11:30 08/26/23 11:00 08/26/23 10:30 08/26/23 10:00 08/26/23 09:45 08/26/23 09:36 08/26/23 07:40 Room Air 08/26/23 07:40 93 Room Air 08/26/23 07:32 90 Room Air 08/26/23 07:15 08/26/23 06:01 93 Room Air 08/26/23 03:28 92 Room Air Laboratory Results Reviewed CBC reviewed chemistry PG Care Time/CCT Total # of Minutes Spent Total Time Spent with Patient: Total time spent is greater than 50% in coordination of care (as documented) at patient's floor/unit and/or counseling patient: Coding Level of Care Code 34201 SUB INP/OBS CARE 2/35MIN Diagnoses Infection due to human metapneumovirus (hMPV) B34.8 ESRD on dialysis N18.6; Z99.2 Elevated troponin R79.89 Hypothyroidism E03.9 GERD (gastroesophageal reflux disease) K21.9
[2023-08-27 08:26] LABS: Hematocrit (blood only) 44.3 % (37.0-47.0); Hemoglobin 13.6 g/dl (12.0-16.0); Mean Corpuscular Hemoglobin 30.6 pg (25.0-34.0); Mean Corpuscular Hgb Conc 30.7 g/dL (32.0-36.0); Mean Corpuscular Volume 99.6 fL (80.0-100.0); Mean Platelet Volume 11.3 fL (9.4-12.4); Platelet Count 143 K/uL (130-400); RDW Coefficient of Variation 14.3 % (11.5-14.5); RDW Standard Deviation 52.9 fL (36.4-46.3); Red Blood Count 4.45 M/uL (4.20-5.40); White Blood Count 7.48 K/ul (4.8-10.8)
[2023-08-27 08:42] LABS: BUN Creatinine Ratio 4.7 (10-20); Calcium 9.2 mg/dl (8.6-10.3); Creatinine Clr Calc Pharmacy 5.2 ml/min; Est GFR (African American) 7.2 ml/min; Est GFR (Non-African American) 6.2 ml/min; Magnesium 2.1 mg/dl (1.7-2.4); Potassium 3.7 mmol/L (3.5-5.1)
--- NOTE | 2023-08-27 12:32 | Nephrology Progress Note ---
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 On HD x 5 years. Dialyzes at [facility]. L BC AVF functioning well. BP and volume status acceptable. Completed HD yesterday with adequate clearance. Net HD Tuesday. No changes made to outpatient Rx. Anticipated discharge home today. Resume HD Tuesday at [facility] as scheduled. Admission and Anticipated Discharge Date Admission Date: August 23, 2023 Subjective No acute events overnight. Monet was seen and evaluated with Dr. Morris this morning. She tolerated HD well yesterday. No complications with treatment. Planned discharge home later today. Review of Systems Review of Systems: All systems reviewed & are unremarkable except as noted in HPI & below Physical Exam Constitutional: well developed, + thin and + frail appearing; no acute distress Eyes: + anicteric sclerae Neck: trachea midline Respiratory: normal respiratory effort Auscultation: lungs clear to auscultation bilaterally Cardiovascular: Rate/Rhythm: regular rate Heart Sounds: normal S1 and normal S2 Vessels: + JVD Extremities: + AV fistula; no edema Musculoskeletal: Extremities: no cyanosis and no clubbing Neurologic: Motor/Sensory: no tremor and no asterixis Psychiatric: Orientation: alert and oriented x 3 Results & Data Vital Signs (Past 12 Hours) Vital Signs Temp Pulse Pulse Pulse Pulse Pulse Resp 08/27/23 11:27 36.6 C 69 18 08/27/23 08:30 08/27/23 08:29 36.8 C 74 18 08/27/23 08:26 91 H 93 H 78 08/27/23 07:42 67 08/27/23 03:08 36.6 C 73 18 Resp Resp Resp BP Pulse Ox Pulse Ox Pulse Ox 08/27/23 11:27 102/58 L 91 08/27/23 08:30 08/27/23 08:29 115/57 L 92 08/27/23 08:26 18 18 18 90 85 L 08/27/23 07:42 08/27/23 03:08 112/61 92 Pulse Ox O2 Del Method O2 Flow Rate 08/27/23 11:27 Room Air 08/27/23 08:30 Room Air 08/27/23 08:29 Room Air 08/27/23 08:26 90 2 08/27/23 07:42 08/27/23 03:08 Room Air Laboratory Results Laboratory Results - last 24 hr 08/26/23 08/27/23 14:50 06:43 WBC 7.48 RBC 4.45 Hgb 13.6 Hct 44.3 MCV 99.6 MCH 30.6 MCHC 30.7 L RDW Std Deviation 52.9 H RDW Coeff of Caroline 14.3 Plt Count 143 MPV 11.3 Sodium 141 Potassium 3.7 Chloride 96 L Carbon Dioxide 30 Anion Gap 15 H BUN 28 H D Creatinine 5.93 H* D Est Cr Clr Drug Dosing 5.2 Est GFR ( Amer) 7.2 Est GFR (Non-Af Amer) 6.2 BUN/Creatinine Ratio 4.7 L Glucose 75 Calcium 9.2 Magnesium 2.1 Stl C. diff Tox B Gene Negative Cdiff Gene PG Care Time/CCT Total # of Minutes Spent Total Time Spent with Patient: Total time spent is greater than 50% in coordination of care (as documented) at patient's floor/unit and/or counseling patient: Coding Level of Care Code 90291 SUB INP/OBS CARE 3/50MIN Diagnoses ESRD on dialysis N18.6; Z99.2
--- NOTE | 2023-08-27 15:18 | Discharge Summary ---
Date of Service August 27, 2023 Admission HPI Per Admitting Provider Monet Pace is an 82-year-old female with end-stage renal disease on dialysis who presents to the ER with 3 to 4 days of cough, myalgias, fever. She was seen at her PCP office today with her O2 sats in the 70s therefore was advised to go to the ER via EMS (she refused coming by EMS). She has dialysis Fridays and reports having her full session yesterday. She denies any productive cough, nasal congestion, sinus pain, chest pain, abdominal pain, nausea, vomiting, diarrhea, urinary symptoms. No fevers or chills. Principal Diagnosis Acute on chronic renal failure in need of dialysis Hyperkalemia resolved Human metapneumovirus pneumonia Hypoxic respiratory failure with need for supplemental oxygen with exertion prescribed at discharge Discharge Exam Patient looks much improved in fact I am surprised she requires oxygen. Has some mild persistent right basilar lung exam changes. Patient is not suspected to have aspiration pneumonia. Cardiac exam is regular Discharge Data Allergies Allergy/AdvReac Type Severity Reaction Status Date / Time ciprofloxacin [From Cipro] Allergy Intermediate itchiness Verified 08/23/23 16:05 Consultations 08/23/23 20:03 ED Decision to Admit Stat 08/23/23 23:38 Consult Nephrology Routine Hospital Course (1) Infection due to human metapneumovirus (hMPV): Patient presented with acute respiratory distress with hypoxia, found to be positive for human metapneumovirus does have pneumonia changes on x-ray treated for both human metapneumovirus pneumonia and possible atypical pneumonia with azithromycin, Two-step oxygen does show patient requires ambulatory oxygen at time of discharge continue to encourage incentive spirometry prescribed 2 L nasal ca nnula with exertion Does have MRSA nasal positive swab however do not feel this is MRSA pneumonia at this time (2) ESRD on dialysis: acute on chronic renal failure/ESRD, urgert dialysis initially with treatment of hyperkalemia Acute hyperkalemia now resolved, secondary to end-stage renal disease, likely needing extended dialysis sessions in the setting of acute illness. Given Lokelma to reduce potassium and then dialyzed during hospital stay. Steel Inspector nephrology continuing supervising potassium and dialysis as an outpatient (3) Elevated troponin: Type 2 CO due to demand ischemia. Suspect demand-ischemia Troponins did peak at 181 ECHO stable EF, moderate pulmonary hypertension no regional wall motion abnormalities Hypertension and coronary artery disease continue carvedilol, patient's blood pressures have been low while she has been hospitalized we have held lisinopril and amlodipine pending further evaluation as an outpatient by primary care and at her dialysis sessions (4) Hypothyroidism: Chronic stable although recent adjustment Levothyroxine reduced from 137 to 112 mcg at that time, will continue 112 mcg recommend outpatient thyroid profile check when she is not acutely ill as inpatient thyroid profile is abnormal but may be influenced by her illness (5) GERD (gastroesophageal reflux disease): Return to PPI when discharged 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 Risk Factor(s): As above, ESRD, pneumonia Encourage good dietary intake when returns home Total Time Total Time Spent Total Time Spent (In Minutes): It required greater than 30 minutes to prepare this patient for discharge. Discharge Plan Discharge Items Patient Disposition: Home - Self-Care Reason For Visit: HYPOXIA, HYPERKALEMIA Discharge Diagnosis: viral pneumonia esrd on dialysis Activity: Per Instructions section Activity Comment: gradually increase activity Non-emergency contact: Primary Care Provider Call non-emergency contact if: your symptoms worsen Follow-up/Referrals: Radha Espinal, [Primary Care Provider] - Diet: Dialysis Renal Addtl Attending Provider Instructions: finish antibiotics please follow up with your primary care this next week continue your dialysis treatment Addtl Steel Inspector Provider Instructions: How long does human metapneumovirus last? Mild cases of human metapneumovirus usually last a few days to a week. If youre very sick, itll probably take longer to feel better. You might also have lingering symptoms, like a cough, that take longer to go away. How do I take care of myself? You can manage mild, cold-like symptoms of HMPV at home by: * Drinking lots of fluids to preventdehydration * * Taking eajj-nnp-rxnvosj (OTC) medications like pain relievers, decongestants and cough suppressants to help your symptoms. Pending Studies at Discharge: No Stand-Alone Forms: My [employer], Smoking Cessation Medications and DC Order Prescriptions: New azithromycin 250 mg Tablet 250 mg PO QAM Qty: 3 0RF Continued omeprazole 40 mg capsule,delayed release(DR/EC) 40 mg PO QAM rosuvastatin 10 mg tablet 10 mg PO DAILY evening primrose oil 500 mg capsule 500 mg PO BID Rx Instructions: give with meal/snack levothyroxine 112 mcg tablet 112 mcg PO DAILY Qty: 30 2RF carvedilol 3.125 mg tablet 3.125 mg PO BID gabapentin 100 mg capsule 100 mg PO HS vitamin E (dl, acetate) 450 mg (1,000 unit) capsule 450 mg PO DAILY d-mannose 500 mg capsule 500 mg PO Q2D Rx Instructions: QOD calcium carbonate [Tums] 200 mg calcium (500 mg) tablet,chewable 200 mg PO BID Sarika-Ashley 0.8 mg tablet 1 tab PO UD Rx Instructions: DAILY AT NOON terazosin 10 mg capsule 10 mg PO HS docusate sodium [Colace] 100 mg capsule 100 mg PO QAM PRN (Reason: Constipation) simethicone [Gas-X Ultra-Strength] 180 mg Capsule 180 mg PO DAILY PRN (Reason: Gi Upset) Held lisinopril 40 mg tablet 40 mg PO QAM Hold Instructions: Resume on 09/12/23. please discuss restart with primary care or nephrology amlodipine 10 mg tablet 10 mg PO QAM Hold Instructions: Resume on 09/12/23. please discuss restart with primary care or nephrology Discharge Orders: Discharge Order (Routine); Ordered 08/27/23 Ordered By: Tirso Morris Admission Data Admit Date/Time: 08/23/23 20:29 Attending Provider: Tirso Morris Admit Provider: Chavez Norton Primary Care Provider: Radha Espinal Other Providers: Zayda Pompa; Licha Bourgeois Other Interventions: Discharge Summary Assessment (RN) Last Done: 08/27/23 13:54 Coding Level of Care Code 72255 INP/OBS DISCH >30 MIN Diagnoses Infection due to human metapneumovirus (hMPV) B34.8 ESRD on dialysis N18.6; Z99.2 Elevated troponin R79.89 Hypothyroidism E03.9 GERD (gastroesophageal reflux disease) K21.9
== END 2023-08-27 14:51 | disposition home or self-care (01) | DRG 193 ==
LOC: ED 17:08 → EDINP 20:29 → SUATTDRO 20:29 → 2W 22:58